=== PATIENT | female | born 1960 | race Caucasian/White ===

== ENCOUNTER 2020-04-09 13:37 | Outpatient (CLI) | payer OTHER, SELFPAY ==
--- NOTE | 2020-04-09 | ECG_ITS ---
Measurements Intervals [place] Rate: 62 P: 39 OR: 154 QRS: 35 QRSD: 93 T: 34 QT: 389 QTc: 395 Interpretive Statements SINUS RHYTHM NORMAL ECG Electronically Signed On 04-09-2020 14:32:47 CDT by Nicolas Duff D.O.
== END 2020-04-09 13:38 | disposition home or self-care (01) ==
PROVIDERS: PCP Family Medicine; Visit Provider Podiatrist Foot & Ankle Surgery
DX: R03.0 Elevated blood-pressure reading, without diagnosis of hypertension (principal)
CPT/HCPCS: 93005

== ENCOUNTER 2020-12-12 12:23 | Emergency (ER) | payer OTHER, SELFPAY ==
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
[2020-12-12 12:21] VITALS: BP 141/88; PULSE 77; RESP 16; TEMP 36.4; O2SAT 98
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
[2020-12-12] MEDS: HYDROcodone/acetaminophen (*CRX) 5-325 MG TABLET 1 TAB PO (12:56)
== END 2020-12-12 13:36 | disposition home or self-care (01) ==
PROVIDERS: Emergency Provider Emergency Medicine; PCP Family Medicine
DX: T23.161A Burn of first degree of back of right hand, initial encounter (principal); S20.211A Contusion of right front wall of thorax, initial encounter; T31.0 Burns involving less than 10% of body surface; I10 Essential (primary) hypertension; E03.9 Hypothyroidism, unspecified; V49.40XA Driver injured in collision with unspecified motor vehicles in traffic accident, initial encounter; W22.11XA Striking against or struck by driver side automobile airbag, initial encounter
CPT/HCPCS: 71046; 99283; A9270

== ENCOUNTER → 2021-02-22 15:18 | Outpatient (CLI) | payer OTHER, SELFPAY ==
--- NOTE | ~2021-02-22 | XR_ITS ---
XR clavicle RT 02/22/2021 15:39 INDICATION: Left shoulder pain PROCEDURE: 2 views left clavicle COMPARISON: No prior studies for comparison. FINDINGS: Fracture, dislocation or subluxation is not identified. The soft tissues appear within norm al limits. No foreign bodies are identified. IMPRESSION: 1: NO ACUTE BONE OR JOINT ABNORMALITY IDENTIFIED. Reviewed, dictated and finalized at location B.
== END ==
PROVIDERS: Visit Provider Nurse Practitioner Family
DX: M89.8X1 Other specified disorders of bone, shoulder (principal)
CPT/HCPCS: 73000

== ENCOUNTER 2021-04-02 10:56 | Emergency (ER) | payer OTHER, SELFPAY ==
--- NOTE | 2021-04-02 11:02 | ED.FEMALEGU ---
HPI - Female Genitourinary General Chief complaint: Urogenital-Female Stated complaint: uti Time Seen by Provider: 04/02/21 11:03 Source: patient and RN notes reviewed Mode of arrival: ambulatory Limitations: no limitations History of Present Illness HPI Narrative: 60-year-old female presents to [facility] with complaints of I think I have a UTI. Complains of suprapubic pressure, burning, urgency and frequency. Has a history of UTIs and states it feels very similar. Related Data Allergies Allergy/AdvReac Type Severity Reaction Status Date / Time loratadine Allergy Unknown Unknown Verified 04/02/21 11:16 nitrofurantoin Allergy Unknown Other Verified 04/02/21 11:16 azelastine AdvReac Unknown SLEEPY Verified 04/02/21 11:16 indomethacin AdvReac Unknown Nausea and Verified 04/02/21 11:16 Vomiting Review of Systems Review of Systems: All systems reviewed & are unremarkable except as noted in HPI and below Constitutional: Constitutional: Reports no additional constitutional complaints, Denies chills and Denies fatigue Eyes: Eyes: Reports no additional eye complaints Cardiovascular: Cardiovascular: Reports no additional cardiovascular complaints and Denies chest pain Respiratory: Respiratory: Reports no additional respiratory complaints, Denies cough, Denies dyspnea and Denies wheezing Gastrointestinal: Gastrointestinal: Reports no additional gastrointestinal complaints, Denies abdominal pain, Denies diarrhea, Denies nausea and Denies vomiting Genitourinary: Genitourinary: Reports as per HPI, Denies hematuria, Reports nocturia, Reports dysuria, Denies flank pain and Denies vaginal discharge Musculoskeletal: Musculoskeletal: Reports no additional musculoskeletal complaints and Denies back pain Integumentary/Breasts: Skin/Breast: Reports system reviewed and no additional complaints, except as docu Neurologic: Reports system reviewed and no additional complaints, except as documented Psychiatric: Psychiatric: Reports no additional psychiatric complaints [facility] Past Medical History Medical History BMI 36.0-36.9,adult BMI 37.0-37.9, adult Essential (primary) hypertension Hallux limitus of left foot Hypothyroidism, unspecified Surgical History Surgical History History of carpal tunnel release of both wrists 2010 History of endometrial ablation Family History Family History Mother Family history of cataracts Hypertension Family history of diabetes mellitus in first degree relative Sibling Hypertension Carcinoma of colon Grandparent Carcinoma of colon Father , yesterday. 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 There is no relevant family history pertinent to the patient complaint. Exam Const: General: healthy appearing, no acute distress and alert Nutritional Appearance: well nourished Orientation/consciousness: patient oriented x3 Limitations: no limitations HENMT: Head: normal to inspection Chest: Chest palpation & inspection: normal inspection of the chest Resp: Effort & Inspection: normal respiratory effort and no use of accessory muscles Auscultation: clear to auscultation bilaterally, no crackles, no rales, no rhonchi and no wheezes Cardio: Rate: regular rate Rhythm: regular rhythm GI: GI Palp: Yes Soft to palpation and No Tenderness to palpation prese
[2021-04-02 11:10] VITALS: BP 128/72; PULSE 75; RESP 16; TEMP 36.6; O2SAT 99
[2021-04-02 11:12] VITALS: BP 128/72; PULSE 75; RESP 16; TEMP 36.6; O2SAT 99
== END 2021-04-02 11:22 | disposition home or self-care (01) ==
PROVIDERS: Emergency Provider Nurse Practitioner; PCP Family Medicine
DX: N30.01 Acute cystitis with hematuria (principal); I10 Essential (primary) hypertension; E03.9 Hypothyroidism, unspecified
CPT/HCPCS: 81003; 87077; 87086; 87088; 87186; 99213; G0463

== ENCOUNTER 2021-04-05 07:48 | Outpatient (CLI) | payer OTHER, SELFPAY ==
--- NOTE | ~2021-04-05 | MM_ITS ---
EXAMINATION: MM screening ramon BI w estefany HISTORY: Screening mammogram TECHNIQUE: Craniocaudal and mediolateral oblique 3-D tomosynthesis images were obtained and synthetic 2-D images were generated. CAD analysis was submitted and interpreted. COMPARISON: 09/20/2019, 05/10/2011 bilateral digital screening mammogram examinations BREAST PARENCHYMAL COMPOSITION: There are scattered areas of fibroglandular density. FINDINGS: There is no evidence of suspicious mass, calcification, or architectural distortion to sugg est malignancy in either breast. There has been no suspicious interval change. IMPRESSION: 1. No mammographic evidence of malignancy. 2. Recommend routine screening mammography in one year. BI-RADS Category 1: Negative Reviewed, dictated and finalized at location A.
--- NOTE | ~2021-04-05 | DEXA_ITS ---
Bone Density Report Name: Amber Donaldson Age: 60 Sex: Female Ethnicity: White Date of : 1960 Indication: postmenopausal; Referring Provider: Elmer Hameed Study: Bone densitometry was performed. Exam Date: April 05, 2021 Accession number: [id number] Bone Density: Region BMD T-score Z-score Classification AP Spine (L1-L4) 1.043 0.0 1.3 Normal Femoral Neck (Left) 0.713 -1.2 0.0 Osteopenia Total Hip (Left) 1.010 0.6 1.5 Normal Total Hip Bilateral Avg 0.972 0.3 1.2 Normal Femoral Neck (Right) 0.750 -0.9 0.4 Normal Total Hip (Right) 0.933 -0.1 0.8 Normal World Health Organization criteria for BMD impression classify patients as: Normal (T-score at or above -1.0), Osteopenia (T-score between -1.0 and -2.5), or Osteoporosis (T-score at or below -2.5). 10-year Fracture Risk(1): Major Osteoporotic Fracture 6.6% Hip Fracture 0.4% Reported Risk Factors: [place] (), Neck BMD=0.713, BMI=36.1 (1) FRAX(R) Version 3.08. Fracture probability calculated for an untreated patient. Fracture probability may be lower if the patient has received treatment. Clinical Information Provided by Patient: Has used the following medications: Vitamin D, Calcium Patient maximum height was 60 Menopause Age: 52 No regular weight bearing exercise Does not regularly consume dairy products Drinks caffeinated beverages Onset of menses at age 13 Number of children 2 Impression: The patient has low bone mass, based on the Left Femoral Neck T-score. The patient has an estimated ten-year risk of hip fracture of 0.4% and an estimated ten-year risk of major fracture of 6.6%, based on the WHO FRAX algorithm. Discussion: BONE DENSITY IS LOW AT ONE OR MORE SKELETAL SITES. This patient's lowest T-score is low at one or more skeletal sites. It meets the World Health Organization's (WHO) criteria for ?low bone mass? (T-score between -1.0 and -2.5). The patient's 10-year risk of fracture as calculated by FRAX is less than the threshold where pharmacological therapy is recommended by the National Osteoporosis Foundation (NOF). However, all treatment decisions require clinical judgment and consideration of individual patient factors, including patient preferences, comorbidities, previous drug use, risk factors not captured in the FRAX model (e.g., frailty, falls, vitamin D deficiency, increased bone turnover, interval significant decline in bone density) and possible under or overestimation of fracture risk by FRAX. The patient should follow a healthful lifestyle (good nutrition with adequate calcium and vitamin D, and appropriate weight-bearing exercise). Follow-Up: Consider repeating this study in 2 to 3 years to reassess this patient's status, or sooner if there is some new clinical indication. Reported by: CHRIS on 04/05/20
== END 2021-04-05 07:49 | disposition home or self-care (01) ==
PROVIDERS: PCP Family Medicine; Visit Provider Nurse Practitioner Family
DX: E03.8 Other specified hypothyroidism (principal); E88.81 Metabolic syndrome and other insulin resistance; R73.03 Prediabetes; R79.89 Other specified abnormal findings of blood chemistry; Z68.36 Body mass index [BMI] 36.0-36.9, adult; Z12.31 Encounter for screening mammogram for malignant neoplasm of breast; Z78.0 Asymptomatic menopausal state; M85.852 Other specified disorders of bone density and structure, left thigh
CPT/HCPCS: 77063; 77067; 77080

== ENCOUNTER 2022-09-01 09:33 | Emergency (ER) | payer OTHER, SELFPAY ==
[2022-09-01 09:44] VITALS: BP 130/74; PULSE 70; RESP 16; TEMP 37; O2SAT 98
--- NOTE | 2022-09-01 10:31 | ED.URI ---
HPI - URI/Sore Throat General Chief Complaint: Upper Respiratory Infection Stated Complaint: headache, runny nose, coughing Time Seen by Provider: 09/01/22 10:20 Source: patient Mode of arrival: ambulatory Limitations: no limitations History of Present Illness HPI Narrative: patient presents today complaining of a 7+ day history of headache, rhinorrhea, nasal congestion, cough, fever up to 99.7, postnasal drainage. States this morning she has been experiencing green nasal drainage. She has been taking DayQuil and NyQuil without relief. Denies any history of asthma or COPD. No shortness of breath. She is a nonsmoker. She has been vaccinated for COVID-19. She has had a negative home COVID-19 test. Related Data Home Medications Medication Instructions Recorded Confirmed [place] 3 09/01/22 cholecalciferol (vitamin D3) 09/01/22 Allergies Allergy/AdvReac Type Severity Reaction Status Date / Time loratadine Allergy Unknown Unknown Verified 09/01/22 10:12 nitrofurantoin Allergy Unknown Other Verified 09/01/22 10:12 azelastine AdvReac Unknown SLEEPY Verified 09/01/22 10:12 indomethacin AdvReac Unknown Nausea and Verified 09/01/22 10:12 Vomiting Review of Systems Review of Systems: CONSTITUTIONAL: Denies body aches, chills, or sweats.+ fever EYES: Denies visual changes, redness, or discharge. ENT: Denies sore throat, or otalgia.+ Congestion, rhinorrhea, postnasal drip CARDIOVASCULAR: Denies chest pain, palpitations, or edema. RESPIRATORY: Denies dyspnea.+ cough GASTROINTESTINAL: Denies abdominal pain, nausea, vomiting, or diarrhea. GENITOURINARY: Denies dysuria or hematuria. SKIN: Denies rash, itching, or wounds. MUSCULOSKELETAL: Denies back pain, joint pain, or myalgia. NEUROLOGIC: Denies numbness, tingling, or weakness.+ headache PSYCH: Denies depression or anxiety. [facility] Past Medical History Medical History BMI 36.0-36.9,adult BMI 37.0-37.9, adult Essential (primary) hypertension Hallux limitus of left foot Hypothyroidism, unspecified Surgical History Surgical History History of carpal tunnel release of both wrists 2011 History of endometrial ablation Family History Family History Mother Family history of cataracts Hypertension Family history of diabetes mellitus in first degree relative Sibling Hypertension Carcinoma of colon Grandparent Carcinoma of colon Father , yesterday. 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 Please see nursing chart for further information. There is no relevant family history pertinent to the presenting complaint Exam Narrative: GENERAL: mildly ill-appearing, well-nourished, and in no acute distress. HEAD: Normocephalic, atraumatic. EYES: EOMI. No redness or drainage. Conjunctivae normal. ENT: Mucous membranes pink and moist. Nares congested. bilateral swollen and erythematous nasal turbinates with purulent discharge. Bilateral maxillary sinus tenderness. No frontal sinus tenderness. TMs normal bilaterally. Throat normal. Uvula midline. NECK: Normal AROM. Supple. No lymphadenopathy. CHEST: No respiratory distress. Clear to auscultation. HEART: Regular rate and rhythm. No murmur appreciated. Normal peripheral pulses.
== END 2022-09-01 10:42 | disposition home or self-care (01) ==
PROVIDERS: Emergency Provider Nurse Practitioner; PCP Family Medicine
DX: J01.90 Acute sinusitis, unspecified (principal); Z87.891 Personal history of nicotine dependence; I10 Essential (primary) hypertension; E03.9 Hypothyroidism, unspecified
CPT/HCPCS: 99213; G0463

== ENCOUNTER 2022-09-09 08:38 | Emergency (ER) | payer OTHER, SELFPAY ==
[2022-09-09 09:07] VITALS: BP 152/83; PULSE 80; RESP 18; TEMP 36.1; O2SAT 100
--- NOTE | 2022-09-09 09:12 | ED.GENADULT ---
HPI - General Adult General Chief complaint: Headache Stated complaint: Headache Time Seen by Provider: 09/09/22 09:12 Source: patient Mode of arrival: ambulatory Limitations: no limitations History of Present Illness HPI narrative: 61-year-old female presents with complaint of mouth sores that causes shooting, sharp pains to head when she touches them with her tongue . Reports that she has had this issue since she was a teenager. Has not seen her physician for this problem in the past. States she has had the mouth sores for the past 2-3 days and wanted it documented So she came here. Reports that mouth sores are not canker sores or viral related states they are from eating rough food such as chips, Cheerios etc. patient also states that she was seen here recently for bacterial sinus infection And is taking Augmentin. states that sinuses are still bothered her and today she woke up with postnasal drainage. Is not taking any daily allergies medications or [id number] medications to treat congestion. Denies cough. Afebrile. All systems reviewed and negative except as noted above. Related Data Home Medications Medication Instructions Recorded Confirmed [place] 3 09/01/22 cholecalciferol (vitamin D3) 09/01/22 Allergies Allergy/AdvReac Type Severity Reaction Status Date / Time loratadine Allergy Unknown Unknown Verified 09/01/22 10:12 nitrofurantoin Allergy Unknown Other Verified 09/09/22 09:06 azelastine AdvReac Unknown SLEEPY Verified 09/01/22 10:12 indomethacin AdvReac Unknown Nausea and Verified 09/09/22 09:06 Vomiting Review of Systems Review of Systems: CONSTITUTIONAL: Denies fever, chills, or sweats. EYES: Denies visual changes, redness, or discharge. ENT: reports rhinorrhea, congestion, postnasal drainage. Deniessore throat, or otalgia. CARDIOVASCULAR: Denies chest pain, palpitations, or edema. RESPIRATORY: Denies cough or dyspnea. GASTROINTESTINAL: Denies abdominal pain, nausea, vomiting, or diarrhea. GENITOURINARY: Denies dysuria or hematuria. SKIN: Denies rash or itching. MUSCULOSKELETAL: Denies back pain, joint pain, or myalgia. NEUROLOGIC: Reports intermittent headache when tongue touches oral mouth sores . Deniesnumbness, or weakness. PSYCHIATRIC: Denies anxiety or depression. All other systems reviewed are negative, except as documented in HPI. [facility] Past Medical History Medical History BMI 36.0-36.9,adult BMI 37.0-37.9, adult Essential (primary) hypertension Hallux limitus of left foot Hypothyroidism, unspecified Surgical History Surgical History History of carpal tunnel release of both wrists 2011 History of endometrial ablation Family History Family History Mother Family history of cataracts Hypertension Family history of diabetes mellitus in first degree relative Sibling Hypertension Carcinoma of colon Grandparent Carcinoma of colon Father , yesterday. 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 There is no relevant family history pertinent to the presenting complaint. Exam Narrative: GENERAL: This is a well-nourished, well-developed patient, in no apparent distress. HEAD: normocephalic, atraumatic. EYES: PERRL. Sclera clear/white. Vision is grossly intact. EARS: Externa
== END 2022-09-09 09:33 | disposition home or self-care (01) ==
PROVIDERS: Emergency Provider Nurse Practitioner Family; PCP Family Medicine
DX: J01.90 Acute sinusitis, unspecified (principal); R51.9 Headache, unspecified; S00.512A Abrasion of oral cavity, initial encounter; X58.XXXA Exposure to other specified factors, initial encounter; I10 Essential (primary) hypertension; E03.9 Hypothyroidism, unspecified
CPT/HCPCS: 99213; G0463

== ENCOUNTER 2023-07-04 02:39 | Day surgery (SDC) | payer OTHER, SELFPAY ==
[2023-06-25 11:19] VITALS: BMI 37.3
[2023-07-04 08:41] VITALS: BP 133/84; PULSE 71; RESP 18; TEMP 36.2; O2SAT 96
[2023-07-04] MEDS: LACTATED RINGERS 1,000 ML 150 ML IV CONT (08:43)
--- NOTE | 2023-07-04 08:49 | WPDANESEPPF ---
Anes - Initial Pre Proc Eval Procedure: Operation Date: 07/04/23 10:00 Proposed Procedures p Screening Colonoscopy - Zhang Salazar MD Date/Time: 07/04/23 08:49 Surgeon: Zhang Salazar MD Pre Op Diagnosis: neoplasm screening Patient Data Age: 62 Gender: F Height: 1.5 m Weight: 84.3 kg Last Vital Signs Temp 97.2 F L 07/04/23 08:41 Pulse 71 07/04/23 08:41 Resp 18 07/04/23 08:41 BP 133/84 07/04/23 08:41 Pulse Ox 96 07/04/23 08:41 O2 Del Method Room Air 07/04/23 08:41 Allergies Allergy/AdvReac Type Severity Reaction Status Date / Time loratadine AdvReac Mild Anxiety Verified 07/04/23 08:40 nitrofurantoin AdvReac Mild Nausea Verified 07/04/23 08:40 azelastine AdvReac Unknown SLEEPY Verified 07/04/23 08:40 indomethacin AdvReac Unknown Nausea and Verified 07/04/23 08:40 Vomiting Home Medications Medication Instructions Recorded Confirmed Type citalopram 40 mg tablet 40 mg PO DAILY #90 tabs 04/08/23 06/25/23 Rx levothyroxine 75 mcg tablet 75 mcg PO DAILY #90 tabs 04/08/23 06/25/23 Rx lisinopril 40 mg tablet 40 mg PO DAILY #90 tabs 04/08/23 06/25/23 Rx valacyclovir 500 mg tablet 500 mg PO DAILY #90 tabs 04/23/23 06/25/23 Rx cholecalciferol (vitamin D3) 25 25 mcg PO DAILY 05/29/23 06/25/23 History mcg (1,000 unit) capsule estradiol 0.01% (0.1 mg/gram) 1 g vaginal 2XW #42.5 grams 05/29/23 06/25/23 Rx vaginal cream omega 4-yja-olp-fish oil 60 mg-90 1 cap PO DAILY 05/29/23 06/25/23 History mg-500 mg capsule Patient hx anesthesia problems: none Family hx anesthesia problems: none Results Review: All pre-operative results and documents have been reviewed as part of the pre-operative evaluation. [facility] Past Medical History Medical History BMI 36.0-36.9,adult BMI 37.0-37.9, adult Essential (primary) hypertension Hallux limitus of left foot Hypothyroidism, unspecified Surgical History Surgical History History of carpal tunnel release of both wrists 2011 History of endometrial ablation Family History Family History Mother Family history of cataracts Hypertension Family history of diabetes mellitus in first degree relative Sibling Hypertension Carcinoma of colon Grandparent Carcinoma of colon Father , yesterday. Dementia Other Diabetes mellitus Family history of malignant melanoma Social History Social History (Updated 05/29/23 @ 11:24 by SAM Cunningham) Smoking status: Never smoker Second hand tobacco smoke exposure: No Alcohol intake: current Drinks per week: 1 Alcohol use details: occasionally Substance use: never Substance use type: does not use Lack of Transportation: No Lack of Food: Never True Current Housing: I Have Housing Concerned About Future Housing: No Difficulty Paying Gas/Electric Bills: No Difficulty Paying for Meds: No Currently Unemployed: No Education: Master's Degree or Higher Difficulty w/ Childcare or Family Care: No Living arrangements: with family 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 Informed Consent: The patient's anesthetic plan and its attendant risks and benefits were discussed
--- NOTE | 2023-07-04 09:08 | PM.HPGS ---
History of Present Illness History of Present Illness Consent: Risks, benefits, and alternatives have been discussed and questions answered. Patient agrees to proceed with procedure. Chief complaint: neoplasm screening Narrative: Amber Donaldson is a 62 year old female with last colonoscopy over 5 years, brother had colon cancer Review of Systems Constitutional: Constitutional: Denies headache(s) and Denies weakness Eyes: Eyes: Denies blurry vision ENT: Reports Normal hearing present, Denies headache(s) and Denies neck pain Cardiovascular: Cardiovascular: Denies chest pain and Denies dyspnea Respiratory: Respiratory: Denies dyspnea Gastrointestinal: Gastrointestinal: Reports no additional gastrointestinal complaints Genitourinary: Genitourinary: Denies dysuria Musculoskeletal: Musculoskeletal: Denies neck pain Integumentary/Breasts: Skin/Breast: Denies dry skin Neurologic: Reports Normal hearing present, Denies headache(s) and Denies weakness Psychiatric: Psychiatric: Denies anxiety Endocrine: Endocrine: Denies change in body appearance Hematologic/Lymphatic: Hematologic/Lymphatic: Denies easy bleeding Allergic/Immunologic: Allergic/Immunologic: Denies urticaria PMFSH Past Medical History Medical History (Updated 07/04/23 @ 09:08 by Zhang Salazar MD) BMI 36.0-36.9,adult BMI 37.0-37.9, adult Essential (primary) hypertension Family history of colon cancer Hallux limitus of left foot Hypothyroidism, unspecified Surgical History Surgical History History of carpal tunnel release of both wrists 2011 History of endometrial ablation Family History Family History Mother Family history of cataracts Hypertension Family history of diabetes mellitus in first degree relative Sibling Hypertension Carcinoma of colon Grandparent Carcinoma of colon Father , yesterday. Dementia Other Diabetes mellitus Family history of malignant melanoma Social History Social History (Updated 05/29/23 @ 11:24 by SAM Cunningham) Smoking status: Never smoker Second hand tobacco smoke exposure: No Alcohol intake: current Drinks per week: 1 Alcohol use details: occasionally Substance use: never Substance use type: does not use Lack of Transportation: No Lack of Food: Never True Current Housing: I Have Housing Concerned About Future Housing: No Difficulty Paying Gas/Electric Bills: No Difficulty Paying for Meds: No Currently Unemployed: No Education: Master's Degree or Higher Difficulty w/ Childcare or Family Care: No Living arrangements: with family 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 Spiritual care concerns: No Meds Home Medications and Allergies Home Medications Medication Instructions Recorded Confirmed Type citalopram 40 mg tablet 40 mg PO DAILY #90 tabs 04/08/23 06/25/23 Rx levothyroxine 75 mcg tablet 75 mcg PO DAILY #90 tabs 04/08/23 06/25/23 Rx lisinopril 40 mg tablet 40 mg PO DAILY #90 tabs 04/08/23 06/25/23 Rx valacyclovir 500 mg tablet 500 mg PO DAILY #90 tabs 04/23/23 06/25/23 Rx cholecalciferol (vitamin D3) 25 25 mcg PO DAILY 05/29/23 06/25/23 History mcg (1,000 unit) capsule estradiol 0.01% (0.1 mg/gram) 1 g vaginal 2XW #42.5 grams 05/29/23 06/25/23 Rx vaginal cream omega 7-iou-vje-fish oil 60 mg-90 1 cap PO DAILY 05/29/23 06/25/23 History mg-500 mg capsule Allergies Allergy/AdvReac Type Severity Reaction Status Date / Time loratadine AdvReac Mild Anxiety Verified 07/04/23 08:40 nitrofurantoin AdvReac Mild Nausea Verified 07/04/23 08:40 azelastine AdvReac Unknown SLEEPY Verified 07/04/23 08:40 indomethacin AdvReac Unknown Nausea and Verified 07/04/23 08:40 Vomiting Vital Signs Vital Signs - 24 hr 07/04/23 08:41
[2023-07-04 09:30] VITALS: BP 90/54; PULSE 61; RESP 18; O2SAT 92
[2023-07-04 09:40] VITALS: BP 92/56; PULSE 62; RESP 20; O2SAT 94
[2023-07-04 09:50] VITALS: BP 117/77; PULSE 69; RESP 18; O2SAT 95
== END 2023-07-04 10:01 | disposition home or self-care (01) ==
PROVIDERS: PCP Family Medicine; Visit Provider Internal Medicine Gastroenterology
PROC: 0DJD8ZZ Inspection of Lower Intestinal Tract, Via Natural or Artificial Opening Endoscopic (ICD-10-PCS; CPT 45378; principal; 2023-07-04 10:00)
DX: Z12.11 Encounter for screening for malignant neoplasm of colon (principal); D12.3 Benign neoplasm of transverse colon; K57.30 Diverticulosis of large intestine without perforation or abscess without bleeding; K64.8 Other hemorrhoids; Z80.0 Family history of malignant neoplasm of digestive organs; I10 Essential (primary) hypertension; E03.9 Hypothyroidism, unspecified; E66.9 Obesity, unspecified; Z68.37 Body mass index [BMI] 37.0-37.9, adult
CPT/HCPCS: 45380; 88305; J2704; J7120

== ENCOUNTER 2023-08-06 13:31 | Outpatient (CLI) | payer OTHER, SELFPAY ==
--- NOTE | ~2023-08-06 | MM_ITS ---
EXAMINATION: MM screening ramon BI w estefany HISTORY: Screening mammogram TECHNIQUE: Craniocaudal and mediolateral oblique 3-D tomosynthesis images were obtained and synthetic 2-D images were generated. CAD analysis was submitted and interpreted. COMPARISON: 04/05/2021, 09/20/2019 bilateral screening mammogram examinations BREAST PARENCHYMAL COMPOSITION: There are scattered areas of fibroglandular density. FINDINGS: Occasional bilateral benign calcifications. There are multiple new thin-walled benign oil cysts scattered in the upper inner and upper outer quad rants of the right breast. There is no evidence of suspicious mass, calcification, or architectural d istortion to suggest malignancy in either breast. There has been no suspicious interval change. IMPRESSION: 1. Benign findings 2. Recommend routine screening mammography in one year. BI-RADS Category 2: Benign finding(s). Reviewed, dictated and finalized at location A.
== END 2023-08-06 13:32 | disposition home or self-care (01) ==
LOC: ANHIMG 13:33
PROVIDERS: PCP Family Medicine; Visit Provider Nurse Practitioner Family
DX: Z12.31 Encounter for screening mammogram for malignant neoplasm of breast (principal)
CPT/HCPCS: 77063; 77067

== ENCOUNTER 2023-10-24 09:47 | Outpatient (CLI) | payer OTHER, SELFPAY ==
--- NOTE | 2023-11-16 17:11 | WPDSLEEPSTUD ---
Sleep Study Date of Study: 10/24/23 Ordering Provider: Mariza Kothari DO Interpreting Physician: Dariela Wilkes MD Sleep Study Type: Polysomnogram Height: 1.5 m Weight: 82.554 kg Body Mass Index: 36.7 Neck Circumference (inches): 16.5 [place]: 17 Reason for Sleep Study BRANDI; this is a basic study on CPAP 10 with titration if needed with MSLT to follow Sleep History Amber Donaldson is a 62-year-old woman with obstructive sleep apnea diagnosed about 15 years ago, has been on CPAP 10 cm since her test in 2017. She now has increasing sleepiness and takes naps. She requires increased caffeine. She never awakens from sleep short of breath. She never wakes at night with heartburn, belching or coughing.??She frequently snores, frequently snores loudly enough that others complain. She occasionally has trouble sleeping when she has a cold. She never wakes up gasping for breath during the night. She never has breathing problems at night. She occasionally sweats excessively at night. She never notices her heart pounding or beating irregularly during the night. She frequently falls asleep during the day. She rarely falls asleep involuntarily, rarely falls asleep while driving. She never experiences loss of muscle tone with strong emotion. she rarely has daytime difficulties at work due to excessive sleepiness. She never feels paralyzed on waking or falling asleep. She never experiences vivid dreams upon waking or falling asleep. She never feels afraid of going to sleep. She never has nightmares. She rarely recalls her dreams. She occasionally has thoughts racing through her mind. She rarely feels sad or depressed. She occasionally feels anxiety. She rarely notices parts of her body jerk. She rarely kicks during the night. She never feels crawling or aching feelings in her legs. She rarely feels leg pain at night. She never has morning jaw pain, and never grinds her teeth at night. She rarely feels bothered by pain during the day, is never awakened by pain during the night. She never wakes up feeling stiff in the morning, never wakes feeling sore or achy in the morning. She rarely awakens with pain in her neck, spine, or joints. Normal bedtime is 11:00 p.m., falling asleep within 15-20 minutes, typically waking up 2-3 times during the night long enough to go to the bathroom if needed and then she returns to sleep. Returning to sleep is not difficult. Her normal wake time is 7:00 a.m.. She keeps the same schedule on weekends. She estimates getting between 6 and 8 hours of sleep at night. Sometimes she takes a nap in the afternoon or evening. A short nap lasting 10-15 minutes is not refreshing. She feels better in the evening compared to other times of day. Habits:??Tobacco: Never smoker Caffeine: 1 serving of tea and 2 cans of Pepsi daily. Alcohol: 1 serving of wine weekly Recreational substances: none PMFSH Past Medical History Medical History BMI 36.0-36.9,adult BMI 37.0-37.9, adult Essential (primary) hypertension Family history of colon cancer Hallux limitus of left foot Hypothyroidism, unspecified BRANDI (obstructive sleep apnea) Surgical History Surgical History History of carpal tunnel release of both wrists 2011 History of endometrial ablation Family History Family History Mother Family history of cataracts Hypertension Family history of diabetes mellitus in first degree relative Sibling Hypertension Carcinoma of colon Grandparent Carcinoma of colon Father , yesterday. Dementia Other Diabetes mellitus Family history of malignant melanoma Social History Social History Smoking status: Never smoker Second hand tobacco smoke exposure: No Alc
[2023-11-22 10:20] VITALS: BMI 36.7
--- NOTE | 2023-11-23 14:40 | WPDSLEEPSTUD ---
Sleep Study Date of Study: 10/24/23 Ordering Provider: Mariza Kothari DO Interpreting Physician: Dariela Wilkes MD Sleep Study Type: Multiple Sleep Latency Test Height: 1.5 m Weight: 82.554 kg Body Mass Index: 36.7 Neck Circumference (inches): 16.5 [place]: 17 Reason for Sleep Study Hypersomnia; she completed PSG with CPAP 12 cm water pressure and 2 cm EPR with more than 6 hours of sleep before this test Sleep History See sleep history from PSG. The patient is a 62 year-old Female, 4' 11 , 182.0 lbs. The BMI is 37.2. A Multiple Sleep Latency Test was performed following a full night polysomnogram for excessive daytime sleepiness. [facility] Past Medical History Medical History BMI 36.0-36.9,adult BMI 37.0-37.9, adult Essential (primary) hypertension Family history of colon cancer Hallux limitus of left foot Hypothyroidism, unspecified BRANDI (obstructive sleep apnea) Surgical History Surgical History History of carpal tunnel release of both wrists 2011 History of endometrial ablation Family History Family History Mother Family history of cataracts Hypertension Family history of diabetes mellitus in first degree relative Sibling Hypertension Carcinoma of colon Grandparent Carcinoma of colon Father , yesterday. Dementia Other Diabetes mellitus Family history of malignant melanoma Social History Social History Smoking status: Never smoker Second hand tobacco smoke exposure: No Alcohol intake: current Drinks per week: 1 Alcohol use details: occasionally Substance use: never Substance use type: does not use Lack of Transportation: No Lack of Food: Never True Current Housing: I Have Housing Concerned About Future Housing: No Difficulty Paying Gas/Electric Bills: No Difficulty Paying for Meds: No Currently Unemployed: No Education: Master's Degree or Higher Difficulty w/ Childcare or Family Care: No Living arrangements: with family 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 Spiritual care concerns: No Medications Home Medications Medication Instructions Recorded Confirmed Type citalopram 40 mg tablet 40 mg PO DAILY #90 tabs 04/08/23 09/05/23 Rx levothyroxine 75 mcg tablet 75 mcg PO DAILY #90 tabs 04/08/23 09/05/23 Rx lisinopril 40 mg tablet 40 mg PO DAILY #90 tabs 04/08/23 09/05/23 Rx cholecalciferol (vitamin D3) 25 25 mcg PO DAILY 05/29/23 09/05/23 History mcg (1,000 unit) capsule omega 6-bsv-jox-fish oil 60 mg-90 1 cap PO DAILY 05/29/23 09/05/23 History mg-500 mg capsule estradiol 0.01% (0.1 mg/gram) 1 appful vaginal DAILY 08/01/23 09/05/23 History vaginal cream Sleep Procedure The recording montage for the MSLT includes frontal (F3-M2 or F4-M1), central (C3-M2 or C4-M1), occipital (O1-M2 or O2-M1) derivations, left and right eye EOGs, mental/submental EMG, and EKG. Nap Summary: Nap trials started at 07:50:27 AM following an overnight polysomnogram that ended at the Time of Lights on at 6:14 AM. The overnight PSG had an overall Apnea-Hypopnea index 0.6 using CPAP 12 cm with 2 cm EPR. The patient did not have sleep onset REM at the start of the nocturnal polysomnogram. The patient used CPAP 12 cm with 2 cm EPR during this MSLT. Nap 1 commenced at 7:50 a.m. Sleep latency was 5.4 minutes. REM sleep did not occur. Total sleep time was 15 minutes. Nap was terminated at 8:10 a.m.. The patient reported that sleep occurred but no dreaming. Nap 2 commenced at 9:49 a.m.. Sleep latency was 5.5 minutes. REM sleep did not occur. Total sleep time was 20 minutes. Nap was terminated at 10:15 a.m. The patient reported that sleep occurred, no dreami
[2023-11-23 15:55] VITALS: BMI 36.7
== END 2023-10-25 16:30 | disposition home or self-care (01) ==
LOC: ANHCSM 09:49
PROVIDERS: PCP Family Medicine; Visit Provider Family Medicine
DX: G47.10 Hypersomnia, unspecified (principal); G47.33 Obstructive sleep apnea (adult) (pediatric)
CPT/HCPCS: 95805; 95810

== ENCOUNTER 2024-04-03 05:33 | Emergency (ER) | payer OTHER, SELFPAY ==
--- NOTE | ~2024-04-03 | CT_ITS ---
CT of the Abdomen and Pelvis: Indication: Abdominal pain Technique: 2.5 mm axial scans were obtained through the abdomen and pelvis following intravenous adm inistration of 100 cc of Omnipaque 350. Dose reduction technique was used on this scan by utilizing a utomated exposure control and iterative reconstruction technique. The dose-length product (DLP) was 8 55.48 mGy-cm. Findings: Scans through the lung bases are unremarkable. Probable diffuse hepatic steatosis. The spleen, pancreas, gallbladder, adrenals and kidneys are withi n normal limits. No evidence of aortic aneurysm. No lymphadenopathy. Possible minimal wall thickening inflammatory change at the sigmoid colon, suggestive of very mild ac fadi diverticulitis. No abscess or free air evident. Images through the pelvis were performed. Urinary bladder unremarkable. No pelvic mass seen. No ascit es. Impression: Probable mild focal acute diverticulitis of the sigmoid colon. Diffuse hepatic steatosis. Reviewed, dictated and finalized at [facility]. Impression: Probable mild focal acute diverticulitis of the sigmoid colon. Diffuse hepatic steatosis.
[2024-04-03 05:39] VITALS: BP 154/80; PULSE 81; RESP 17; TEMP 36.8; O2SAT 97
[2024-04-03 05:57] LABS: Basophils Percent Auto 0.4 % (0.2-1.2); Eosinophils Absolute Auto 0.2 K/mm3 (0-0.3); Eosinophils Percent Auto 1.6 % (0-4.4); Hematocrit 42.3 % (37.0-47.0); Hemoglobin 13.7 g/dL (12.0-15.0); Immature Granulocyte Absolute 0.03 K/mm3 (0.00-0.031); Immature Granulocyte Percent A 0.3 % (0-0.5); Lymphocytes Absolute Auto 2.07 K/mm3 (0.9-3.2); Lymphocytes Percent Auto 18.6 % (18.3-44.2); Mean Corpuscular HGB Conc 32.4 g/dl (32-36); Mean Corpuscular Hemoglobin 30.6 pg (26-34); Mean Corpuscular Volume 94.4 fl (80-100); Mean Platelet Volume 9.7 fl (7.4-10.4); Monocytes Absolute Auto 0.7 K/mm3 (0.1-0.6); Monocytes Percent Auto 6.2 % (2.6-8.5); Neutrophils Absolute Auto 8.1 K/mm3 (1.3-6.7); Neutrophils Percent Auto 72.9 % (45.5-73.1); Platelet Count Result 336 k/mm3 (150-375); Red Blood Count 4.48 M/mm3 (4.2-5.4); Red Cell Distribution Width 13.3 % (11.5-14.5); White Blood Count 11.1 K/mm3 (4.5-10.0)
[2024-04-03 05:59] LABS: Appearance Urine Clear (Clear); Bilirubin Urine Negative (Negative); Blood Urine Negative (Negative); Color Urine Yellow (Yellow); Glucose Urine UA Negative (Negative); Ketones Urine Negative (Negative); Leukocyte Esterase Ur Negative LEU/UL (Negative); Nitrate Urine Negative (Negative); Protein Urine Negative (Negative); Specific Grav Ur 1.005 (1.001-1.035); Urobilinogen Urine 0.2 mg/dL (<2.0); pH Urine 6.5 (5.0-9.0)
[2024-04-03 06:07] VITALS: BP 134/77; PULSE 77; RESP 20; O2SAT 95
[2024-04-03 06:08] LABS: Add Urine Microscopic? NO
[2024-04-03 06:22] LABS: Alanine Aminotransferase 21 U/L (6-35); Albumin Level 4.8 g/dL (3.5-5.1); Alkaline Phosphatase 77 U/L (38-126); Anion Gap 8 mmol/L (4-12); Aspartate Amino Transferase 23 U/L (14-36); Bilirubin,Total 0.4 mg/dL (0.2-1.3); Blood Urea Nitrogen 19 mg/dL (7-17); Calcium 9.5 mg/dL (8.4-10.2); Carbon Dioxide 23 mmol/L (22-30); Chloride 106 mmol/L (98-107); Estimated Glomerular Filt Rate > 60; Glucose 134 mg/dL (65-110); Lipase 132 U/L (23-300); Potassium 4.2 mmol/L (3.4-5.0); Sodium 137 mmol/L (137-145)
--- NOTE | 2024-04-03 06:53 | ED.ABDPAIN ---
HPI - Abdominal Pain General Chief Complaint: Abdominal Pain Stated Complaint: abd pain Time Seen by Provider: 04/03/24 06:25 History of Present Illness HPI narrative: Patient is a 63-year-old female who presents to the emergency department this morning complaining of lower abdominal pain. Patient states that pain started yesterday and initially she thought that it was stress due to her needing to have a bowel movement, however, pain persisted despite that. Patient describes it as fullness in her bilateral lower abdomen and states that it almost feels like she is having a bladder infection but she is not having any dysuria or urgency. Patient denies any nausea or vomiting, denies any diarrhea, denies any sick contacts at home. Patient also denies any chest pain shortness of breath or any fevers or chills at home. No additional symptoms or concerns at this time. Related Data Home Medications Medication Instructions Recorded Confirmed cholecalciferol (vitamin D3) 25 25 mcg PO DAILY 05/29/23 03/05/24 mcg (1,000 unit) capsule omega 7-jva-hwl-fish oil 60 mg-90 1 cap PO DAILY 05/29/23 03/05/24 mg-500 mg capsule estradiol 0.01% (0.1 mg/gram) 1 appful vaginal DAILY 08/01/23 03/05/24 vaginal cream ascorbate calcium (vitamin C) 500 500 mg PO DAILY 03/05/24 03/05/24 mg tablet clobetasol 0.05 % topical ointment 1 applic topical DAILY 03/05/24 03/05/24 ferrous sulfate 325 mg (65 mg 325 mg PO DAILY 03/05/24 03/05/24 iron) tablet triamcinolone acetonide 0.1 % 1 applic topical BID 03/05/24 03/05/24 topical cream Allergies Allergy/AdvReac Type Severity Reaction Status Date / Time loratadine AdvReac Mild Anxiety Verified 03/05/24 12:46 nitrofurantoin AdvReac Mild Nausea Verified 03/05/24 12:46 azelastine AdvReac Unknown SLEEPY Verified 03/05/24 12:46 indomethacin AdvReac Unknown Nausea and Verified 03/05/24 12:46 Vomiting Review of Systems Review of Systems: All systems are reviewed and are negative unless stated otherwise in the HPI. [facility] Past Medical History Medical History BMI 36.0-36.9,adult BMI 37.0-37.9, adult Essential (primary) hypertension Family history of colon cancer Hallux limitus of left foot Hypothyroidism, unspecified BRANDI (obstructive sleep apnea) Surgical History Surgical History History of carpal tunnel release of both wrists 2011 History of endometrial ablation Family History Family History Mother Family history of cataracts Hypertension Family history of diabetes mellitus in first degree relative Sibling Hypertension Carcinoma of colon Grandparent Carcinoma of colon Father , yesterday. Dementia Other Diabetes mellitus Family history of malignant melanoma Social History Social History Smoking status: Never smoker Second hand tobacco smoke exposure: No Alcohol intake: current Drinks per week: 1 Alcohol use details: occasionally Substance use: never Substance use type: does not use Do You Feel Safe in your Home?: Yes Lack of Transportation: No Lack of Food: Never True Current Housing: I Have Housing Concerned About Future Housing: No Difficulty Paying Gas/Electric Bills: No Difficulty Paying for Meds: No Currently Unemployed: No Education: Master's Degree or Higher Difficulty w/ Childcare or Family Care: No Living arrangements: with family 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 HEENT: PERRL, no rhinorrhea, no post nasal drip, oropharynx clear. Cardiovascular: Regular rate and rhythm, no murmurs, rubs or gallops, no pe
[2024-04-03 07:08] VITALS: BP 135/76; PULSE 71; RESP 17; O2SAT 96
== END 2024-04-03 07:33 | disposition home or self-care (01) ==
PROVIDERS: Emergency Provider Emergency Medicine; PCP Family Medicine
DX: K57.32 Diverticulitis of large intestine without perforation or abscess without bleeding (principal); I10 Essential (primary) hypertension; E03.9 Hypothyroidism, unspecified; G47.33 Obstructive sleep apnea (adult) (pediatric); K76.0 Fatty (change of) liver, not elsewhere classified; Z79.899 Other long term (current) drug therapy
CPT/HCPCS: 36415; 74177; 80053; 81003; 83690; 85025; 99284; Q9967

== ENCOUNTER 2024-09-24 16:19 | Outpatient (CLI) | payer OTHER, SELFPAY ==
[2024-09-24 16:40] LABS: Hematocrit 35.8 % (37.0-47.0); Hemoglobin 11.7 g/dL (12.0-15.0); Mean Corpuscular HGB Conc 32.7 g/dl (32-36); Mean Corpuscular Hemoglobin 29.9 pg (26-34); Mean Corpuscular Volume 91.6 fl (80-100); Mean Platelet Volume 9.6 fl (7.4-10.4); Platelet Count Result 177 k/mm3 (150-375); Red Blood Count 3.91 M/mm3 (4.2-5.4); Red Cell Distribution Width 13.5 % (11.5-14.5); White Blood Count 3.9 K/mm3 (4.5-10.0)
[2024-09-24 16:49] LABS: Alanine Aminotransferase 55 U/L (6-35); Albumin Level 3.7 g/dL (3.5-5.1); Alkaline Phosphatase 76 U/L (38-126); Anion Gap 5 mmol/L (4-12); Aspartate Amino Transferase 70 U/L (14-36); Bilirubin,Total 0.3 mg/dL (0.2-1.3); Blood Urea Nitrogen 16 mg/dL (7-17); Carbon Dioxide 26 mmol/L (22-30); Chloride 106 mmol/L (98-107); Estimated Glomerular Filt Rate > 60; Glucose 110 mg/dL (65-110); Lipase 923 U/L (23-300); Potassium 3.3 mmol/L (3.4-5.0); Sodium 137 mmol/L (137-145)
[2024-09-24 16:57] LABS: Add Urine Microscopic? YES; Appearance Urine Clear (Clear); Bacteria Urine None Seen /hpf; Bilirubin Urine Negative (Negative); Blood Urine Negative (Negative); Color Urine Yellow (Yellow); Glucose Urine UA Negative (Negative); Ketones Urine Negative (Negative); Leukocyte Esterase Ur Negative LEU/UL (Negative); Nitrate Urine Negative (Negative); Non Pathogenic Casts 0-2; Protein Urine Trace mg/dL (Negative); RBC Urine 0-2 /hpf (0-2); Specific Grav Ur 1.018 (1.001-1.035); Squamous Epithelial Cell Urine Occasional /hpf (Few); WBC Urine 0-5 /hpf (0-3); pH Urine 6.5 (5.0-9.0)
== END 2024-09-24 16:20 | disposition home or self-care (01) ==
LOC: ANHLAB 16:20
PROVIDERS: PCP Family Medicine; Visit Provider Nurse Practitioner Family
DX: M54.9 Dorsalgia, unspecified (principal); R50.9 Fever, unspecified
CPT/HCPCS: 36415; 80053; 81001; 83690; 85027

== ENCOUNTER 2024-09-24 23:13 | Emergency (ER) | payer OTHER, SELFPAY ==
--- NOTE | ~2024-09-24 | CT_ITS ---
EXAMINATION: CT abdomen pelvis w con DATE: 09/25/2024 01:09 INDICATION: Abdominal pain TECHNIQUE: Computed tomography (CT) of the abdomen and pelvis was performed with 100 mL Omnipaque-350 intravenous contrast. Automated exposure control and iterative reconstruction technique were employe d. The dose-length product was 826.14 mGy-cm. COMPARISON: 04/03/2024 FINDINGS: Calcified nodules in the right lower lobe and lingula along with calcified mediastinal and bilateral hilar lymph nodes and a few scattered splenic calcifications, all consistent with old granulomatous d isease. Heart size is normal. No pericardial or pleural effusion. Small sliding-type hiatal hernia. L iver, gallbladder, pancreas, bilateral adrenal glands and right kidney are normal. 2 mm nonobstructin g stone at a lower pole calyx of the left kidney. There are few diverticula along the sigmoid colon w ithout adjacent inflammatory stranding to suggest diverticulitis. No bowel obstruction. Bladder, ante verted uterus and bilateral adnexa are unremarkable. Minimal likely physiologic free fluid in the pel vis. No abscess or free intraperitoneal gas. No pathologically enlarged abdominal or pelvic lymphaden opathy. Moderate lumbar spondylosis. IMPRESSION: 1. No acute intra-abdominal/pelvic process. 2. 2 mm nonobstructing left renal stone. Reviewed, dictated and finalized at location A. ARCHITECT
[2024-09-24 23:17] VITALS: BP 172/50; PULSE 100; RESP 18; TEMP 37.5; O2SAT 95
[2024-09-25 00:05] VITALS: BP 136/68; PULSE 95; RESP 17; O2SAT 94
[2024-09-25 00:38] LABS: Basophils Percent Auto 0.2 % (0.2-1.2); Eosinophils Absolute Auto 0.3 K/mm3 (0-0.3); Eosinophils Percent Auto 5.1 % (0-4.4); Hematocrit 34.4 % (37.0-47.0); Hemoglobin 11.4 g/dL (12.0-15.0); Immature Granulocyte Absolute 0.02 K/mm3 (0.00-0.031); Immature Granulocyte Percent A 0.4 % (0-0.5); Lymphocytes Absolute Auto 0.25 K/mm3 (0.9-3.2); Lymphocytes Percent Auto 5.1 % (18.3-44.2); Mean Corpuscular HGB Conc 33.1 g/dl (32-36); Mean Corpuscular Hemoglobin 30.2 pg (26-34); Mean Corpuscular Volume 91.2 fl (80-100); Monocytes Absolute Auto 0.2 K/mm3 (0.1-0.6); Monocytes Percent Auto 4.7 % (2.6-8.5); Neutrophils Absolute Auto 4.2 K/mm3 (1.3-6.7); Neutrophils Percent Auto 84.5 % (45.5-73.1); Platelet Count Result 176 k/mm3 (150-375); Red Blood Count 3.77 M/mm3 (4.2-5.4); Red Cell Distribution Width 13.3 % (11.5-14.5); White Blood Count 4.9 K/mm3 (4.5-10.0)
[2024-09-25 00:54] LABS: Alanine Aminotransferase 51 U/L (6-35); Albumin Level 3.5 g/dL (3.5-5.1); Alkaline Phosphatase 76 U/L (38-126); Anion Gap 9 mmol/L (4-12); Aspartate Amino Transferase 67 U/L (14-36); Bilirubin,Total 0.4 mg/dL (0.2-1.3); Blood Urea Nitrogen 17 mg/dL (7-17); Calcium 8.1 mg/dL (8.4-10.2); Carbon Dioxide 24 mmol/L (22-30); Chloride 105 mmol/L (98-107); Estimated Glomerular Filt Rate > 60; Glucose 202 mg/dL (65-110); Lipase 133 U/L (23-300); Potassium 3.4 mmol/L (3.4-5.0); Sodium 138 mmol/L (137-145)
[2024-09-25] MEDS: MORPHINE SULFATE (*CRX) 4 MG/ML INJ IV PUSH (01:18)
[2024-09-25] MEDS: ONDANSETRON INJ 4 MG/2 ML VIAL IV PUSH (01:18)
[2024-09-25] MEDS: SODIUM CHLORIDE 0.9% IV 1,000 ML 999 ML IV CONT (01:18)
--- NOTE | 2024-09-25 01:38 | ED.GENADULT ---
HPI - General Adult General Chief complaint: Nausea/Vomiting/Diarrhea Stated complaint: i think its diverticulitis Time Seen by Provider: 09/25/24 00:51 History of Present Illness HPI narrative: patient is a 63-year-old female who presents emergency department with chief complaint of abdominal discomfort bloating and gas patient reports he has had a fever at home and reports that she was concerned that she may have diverticulitis as she was diagnosed back in April with an episode of diverticulitis. Related Data Home Medications Medication Instructions Recorded Confirmed cholecalciferol (vitamin D3) 25 25 mcg PO DAILY 05/29/23 07/09/24 mcg (1,000 unit) capsule omega 2-wiz-thx-fish oil 60 mg-90 1 cap PO DAILY 05/29/23 07/09/24 mg-500 mg capsule estradiol 0.01% (0.1 mg/gram) 1 appful vaginal DAILY 08/01/23 07/09/24 vaginal cream ascorbate calcium (vitamin C) 500 500 mg PO DAILY 03/05/24 07/09/24 mg tablet clobetasol 0.05 % topical ointment 1 applic topical DAILY 03/05/24 07/09/24 ferrous sulfate 325 mg (65 mg 325 mg PO DAILY 03/05/24 07/09/24 iron) tablet triamcinolone acetonide 0.1 % 1 applic topical BID 03/05/24 07/09/24 topical cream Allergies Allergy/AdvReac Type Severity Reaction Status Date / Time loratadine AdvReac Mild Anxiety Verified 09/24/24 23:20 nitrofurantoin AdvReac Mild Nausea Verified 09/24/24 23:20 azelastine AdvReac Unknown SLEEPY Verified 09/24/24 23:20 indomethacin AdvReac Unknown Nausea and Verified 09/24/24 23:20 Vomiting amoxicillin [From Augmentin] AdvReac Headache Verified 09/24/24 23:20 clavulanic acid AdvReac Headache Verified 09/24/24 23:20 [From Augmentin] Review of Systems Review of Systems: A 10 system review of systems was completed on the patient and is negative except for what is stated in the HPI. Nursing and ancillary documentation was reviewed. [facility] Past Medical History Medical History BMI 36.0-36.9,adult BMI 37.0-37.9, adult Essential (primary) hypertension Family history of colon cancer Hallux limitus of left foot Hypothyroidism, unspecified BRANDI (obstructive sleep apnea) Rectal itching Surgical History Surgical History History of carpal tunnel release of both wrists 2011 History of endometrial ablation Family History Family History Mother Family history of cataracts Hypertension Family history of diabetes mellitus in first degree relative Sibling Hypertension Carcinoma of colon Grandparent Carcinoma of colon Father , yesterday. Dementia Other Diabetes mellitus Family history of malignant melanoma Social History Social History Smoking status: Never smoker Second hand tobacco smoke exposure: No Alcohol intake: current Drinks per week: 1 Alcohol use details: occasionally Substance use: never Substance use type: does not use Do You Feel Safe in your Home?: Yes Lack of Transportation: No Lack of Food: Never True Current Housing: I Have Housing Concerned About Future Housing: No Difficulty Paying Gas/Electric Bills: No Difficulty Paying for Meds: No Currently Unemployed: No Education: Master's Degree or Higher Difficulty w/ Childcare or Family Care: No Living arrangements: with family 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 HEAD: Normocephalic, atraumatic. EYES: PERRLA and EOMI. ENT: Nares clear, no rhinorrhea or epistaxis. Mucous membranes moist. NECK: Supple. CHEST: Clear to auscultation. No respiratory distress. HEART: Regular rate and rhythm. No murmur heard. Normal peripheral pulses. ABDOMEN: Soft, Tenderness to palpation in the abdomen no guarding no rebound, nondistended, normal active bowel sounds. EXTREMITIES: Normal range of motion. No edema. SKIN: Warm, dry, no rash. NEURO: No focal deficits. Alert and oriented x3. PSYCH: Normal mood and affect. Course Vital Signs Vital signs: Vital Signs Temperature 37.5 C 09/24/24 23:17 Pulse Rate 100 09/24/24 23:17 Respiratory Rate 18 11/27/24 23:17 Blood Pressure 172/50 H 09/24/24 23:17 Pulse Oximetry 95 09/24/24 23:17 Oxygen Delivery Room Air 09/24/24 23:17 Temperature 37.5 C 09/24/24 23:17 Pulse Rate 95 09/25/24 00:05 Respiratory Rate 17 09/25/24 00:05 Blood Pressure 136/68 09/25/24 00:05 Pulse Oximetry 94 09/25/24 00:05 Oxygen Delivery Room Air 09/24/24 23:17 Medical Decision Making MDM Narrative Medical decision making narrative: Differential diagnosis includes diverticulitis, colitis, intra-abdominal infection laboratory studies were obtained on the patient showed white count electrolytes are within normal limits the patient did have a slightly low calcium and AST and ALT were slightly elevated glucose was [address] scan of the abdomen pelvis showed no acute abnormality Vital Signs Vital Signs: Vital Signs Temperature 37.5 C 09/24/24 23:17 Pulse Rate 100 09/24/24 23:17 Respiratory Rate 18 09/24/24 23:17 Blood Pressure 172/50 H 09/24/24 23:17 Pulse Oximetry 95 09/24/24 23:17 Oxygen Delivery Room Air 09/24/24 23:17 Temperature 37.5 C 09/24/24 23:17 Pulse Rate 95 09/25/24 00:05 Respiratory Rate 17 09/25/24 00:05 Blood Pressure 136/68 09/25/24 00:05 Pulse Oximetry 94 09/25/24 00:05 Oxygen Delivery Room Air 09/24/24 23:17 Lab Data 09/25/24 00:32 09/25/24 00:32 Labs: Lab Results 09/25/24 Range/Units 00:32 WBC 4.9 (4.5-10.0) K/mm3 RBC 3.77 L (4.2-5.4) M/mm3 Hgb 11.4 L (12.0-15.0) g/dL Hct 34.4 L (37.0-47.0) % MCV 91.2 (80-100) fl MCH 30.2 (26-34) pg MCHC 33.1 (32-36) g/dl RDW 13.3 (11.5-14.5) % Plt Count 176 (150-375) k/mm3 MPV 10.0 (7.4-10.4) fl Immature Gran % (Auto) 0.4 (0-0.5) % Neut % (Auto) 84.5 H (45.5-73.1) % Lymph % (Auto) 5.1 L (18.3-44.2) % [place] % (Auto) 4.7 (2.6-8.5) % Eos % (Auto) 5.1 H (0-4.4) % Baso % (Auto) 0.2 (0.2-1.2) % Lymph # (Auto) 0.25 L (0.9-3.2) K/mm3 [place] # (Auto) 0.2 (0.1-0.6) K/mm3 Eos # (Auto) 0.3 (0-0.3) K/mm3 Baso # (Auto) 0.0 (0.0-0.1) K/mm3 Abs Immat Gran (auto) 0.02 (0.00-0.031) K/mm3 Absolute Neuts (auto) 4.2 (1.3-6.7) K/mm3 Absolute Nucleated RBC 0.000 (0.0-0.012) K/mm3 Nucleated RBC % 0.0 (0.0-0.2) % Sodium 138 (137-145) mmol/L Potassium 3.4 (3.4-5.0) mmol/L Chloride 105 (98-107) mmol/L Carbon Dioxide 24 (22-30) mmol/L Anion Gap 9 (4-12) mmol/L BUN 17 (7-17) mg/dL Creatinine 0.70 (0.7-1.0) mg/dL Estim Creat Clear Calc Not Reportable Estimated GFR > 60 (59 - ) Glucose 202 H (65-110) mg/dL Calcium 8.1 L (8.4-10.2) mg/dL Total Bilirubin 0.4 (0.2-1.3) mg/dL AST 67 H (14-36) U/L ALT 51 H (6-35) U/L Alkaline Phosphatase 76 (38-126) U/L Total Protein 6.0 L (6.3-8.2) g/dL Albumin 3.5 (3.5-5.1) g/dL Lipase 133 (23-300) U/L Discharge Plan Discharge Clinical Impression: Abdominal pain Patient Disposition: Home, Self-Care Condition: Stable Instructions: Antibiotic Form, Abdominal Pain (ED) Prescriptions: New dicyclomine 20 mg tablet 20 mg PO QID PRN (Reason: abdominal discomfort) Qty: 20 0RF ondansetron 4 mg tablet,disintegrating 4 mg PO Q8H PRN (Reason: nausea and vomiting) Qty: 10 0RF No Action cholecalciferol (vitamin D3) 25 mcg (1,000 unit) capsule 25 mcg PO DAILY omega 3-gbl-lqv-fish oil 60-90-500 mg capsule 1 cap PO DAILY estradiol 0.01 % (0.1 mg/gram) cream 1 appful vaginal DAILY Rx Instructions: for 14 days ferrous sulfate 325 mg (65 mg iron) tablet 325 mg PO DAILY ascorbate calcium (vitamin C) 500 mg tablet 500 mg PO DAILY triamcinolone acetonide 0.1 % cream 1 applic topical BID clobetasol 0.05 % ointment 1 applic topical DAILY (DME) CPAP Equipment See Rx Instructions .Route .MEDSUPPLY Qty: 1 0RF Rx Instructions: Rx: Change pressure to CPAP 12 cm with EPR of 2 Dx: G47.33 DME: [facility] [place] HomePatient Physician: Dr. Mariza Kothari DO lisinopril 40 mg tablet 40 mg PO DAILY Qty: 90 3RF citalopram 40 mg tablet 40 mg PO DAILY Qty: 90 3RF levothyroxine 75 mcg tablet 75 mcg PO DAILY Qty: 90 3RF modafinil 100 mg tablet 100 mg PO QAM Qty: 90 0RF ondansetron 4 mg tablet,disintegrating 4 mg PO Q8H PRN (Reason: nausea and vomiting) Qty: 14 0RF Follow-up/Referrals: Mariusz Tolbert MD [Primary Care Provider] - Time of Disposition: 02:25
[2024-09-25 02:17] VITALS: BP 130/70; PULSE 80; RESP 17; O2SAT 93
== END 2024-09-25 02:45 | disposition home or self-care (01) ==
PROVIDERS: Emergency Provider Emergency Medicine; PCP Family Medicine
DX: R10.9 Unspecified abdominal pain (principal); I10 Essential (primary) hypertension; E03.9 Hypothyroidism, unspecified; G47.33 Obstructive sleep apnea (adult) (pediatric); Z79.899 Other long term (current) drug therapy; N20.0 Calculus of kidney
CPT/HCPCS: 36415; 74177; 80053; 81001; 83690; 85025; 85027; 96361; 96374; 96375; 99284; J2270; J2405; J7030; Q9967

== ENCOUNTER 2024-09-28 01:25 | Emergency (ER) | payer OTHER, SELFPAY ==
[2024-09-28 01:26] VITALS: BP 150/86; PULSE 87; RESP 18; TEMP 37.5; O2SAT 96
[2024-09-28 04:01] LABS: Basophils Percent Auto 0.5 % (0.2-1.2); Eosinophils Absolute Auto 0.3 K/mm3 (0-0.3); Eosinophils Percent Auto 4.8 % (0-4.4); Hematocrit 32.4 % (37.0-47.0); Hemoglobin 11.1 g/dL (12.0-15.0); Immature Granulocyte Absolute 0.03 K/mm3 (0.00-0.031); Immature Granulocyte Percent A 0.5 % (0-0.5); Lymphocytes Percent Auto 7.1 % (18.3-44.2); Mean Corpuscular HGB Conc 34.3 g/dl (32-36); Mean Corpuscular Hemoglobin 30.1 pg (26-34); Mean Corpuscular Volume 87.8 fl (80-100); Mean Platelet Volume 10.4 fl (7.4-10.4); Monocytes Absolute Auto 0.2 K/mm3 (0.1-0.6); Monocytes Percent Auto 3.7 % (2.6-8.5); Neutrophils Absolute Auto 4.7 K/mm3 (1.3-6.7); Neutrophils Percent Auto 83.4 % (45.5-73.1); Platelet Count Result 214 k/mm3 (150-375); Red Blood Count 3.69 M/mm3 (4.2-5.4); Red Cell Distribution Width 13.9 % (11.5-14.5); White Blood Count 5.7 K/mm3 (4.5-10.0)
[2024-09-28 04:06] LABS: Add Urine Microscopic? YES; Appearance Urine Clear (Clear); Bacteria Urine 1+ /hpf; Bilirubin Urine 1+ (Negative); Blood Urine Negative (Negative); Color Urine Dark Yellow (Yellow); Glucose Urine UA Negative (Negative); Ketones Urine Negative (Negative); Leukocyte Esterase Ur Trace LEU/UL (Negative); Nitrate Urine Negative (Negative); Non Pathogenic Casts 0-2; Protein Urine Trace mg/dL (Negative); RBC Urine 0-2 /hpf (0-2); Specific Grav Ur 1.023 (1.001-1.035); Squamous Epithelial Cell Urine Moderate /hpf (Few); WBC Urine 0-5 /hpf (0-3)
[2024-09-28 04:12] LABS: Alanine Aminotransferase 46 U/L (6-35); Albumin Level 3.5 g/dL (3.5-5.1); Alkaline Phosphatase 84 U/L (38-126); Anion Gap 3 mmol/L (4-12); Aspartate Amino Transferase 46 U/L (14-36); Bilirubin,Total 0.4 mg/dL (0.2-1.3); Blood Urea Nitrogen 8 mg/dL (7-17); Carbon Dioxide 26 mmol/L (22-30); Chloride 104 mmol/L (98-107); Estimated Glomerular Filt Rate > 60; Glucose 128 mg/dL (65-110); Lipase 56 U/L (23-300); Potassium 3.2 mmol/L (3.4-5.0); Sodium 133 mmol/L (137-145)
--- NOTE | 2024-09-28 04:26 | ED_ITS ---
HPI - Abdominal Pain General Chief Complaint: Abdominal Pain Stated Complaint: fever, headache, nausea, abdominal pain Time Seen by Provider: 09/28/24 04:03 History of Present Illness HPI narrative: 63-year-old female with a past medical history significant for diverticulitis. Presents to the emergency department today with continued complaints of abdominal discomfort, bloating, weight gain, gas, subjective fevers at home. Patient was seen and evaluated in this emergency department several days prior and underwent a thorough investigative workup including laboratory studies, urin alysis, CT scan of the abdomen and pelvis. Overall she was sent home without any acute findings on imaging or workup and she was stable. She states that she has been taking some supplementations at home at the recommendations were PCP including G LP 1 probiotics and another herbal medication. She thinks that these are causing her symptoms as she initially had resolution of her symptoms when she stopped taking of earlier this week and then again had her symptoms when she started taking them. Denies any present diarrhea, abdominal pain, chest pain, shortness a breath, fever. Patient states that her medications are causing a reaction and that they are because of her symptoms today. Related Data Home Medications Medication Instructions Recorded Confirmed cholecalciferol (vitamin D3) 25 25 mcg PO DAILY 05/29/23 07/09/24 mcg (1,000 unit) capsule omega 8-hyb-evv-fish oil 60 mg-90 1 cap PO DAILY 05/29/23 07/09/24 mg-500 mg capsule estradiol 0.01% (0.1 mg/gram) 1 appful vaginal DAILY 08/01/23 07/09/24 vaginal cream ascorbate calcium (vitamin C) 500 500 mg PO DAILY 03/05/24 07/09/24 mg tablet clobetasol 0.05 % topical ointment 1 applic topical DAILY 03/05/24 07/09/24 ferrous sulfate 325 mg (65 mg 325 mg PO DAILY 03/05/24 07/09/24 iron) tablet triamcinolone acetonide 0.1 % 1 applic topical BID 03/05/24 07/09/24 topical cream Allergies Allergy/AdvReac Type Severity Reaction Status Date / Time loratadine AdvReac Mild Anxiety Verified 09/24/24 23:20 nitrofurantoin AdvReac Mild Nausea Verified 09/24/24 23:20 azelastine AdvReac Unknown SLEEPY Verified 09/24/24 23:20 indomethacin AdvReac Unknown Nausea and Verified 09/24/24 23:20 Vomiting amoxicillin [From Augmentin] AdvReac Headache Verified 09/24/24 23:20 clavulanic acid AdvReac Headache Verified 09/24/24 23:20 [From Augmentin] Review of Systems Review of Systems: As reviewed above in [facility] Past Medical History Medical History BMI 36.0-36.9,adult BMI 37.0-37.9, adult Essential (primary) hypertension Family history of colon cancer Hallux limitus of left foot Hypothyroidism, unspecified BRANDI (obstructive sleep apnea) Rectal itching Surgical History Surgical History History of carpal tunnel release of both wrists 2011 History of endometrial ablation Family History Family History Mother Family history of cataracts Hypertension Family history of diabetes mellitus in first degree relative Sibling Hypertension Carcinoma of colon Grandparent Carcinoma of colon Father , yesterday. Dementia Other Diabetes mellitus Family history of malignant melanoma Social History Social History Smoking status: Never smoker Second hand tobacco smoke exposure: No Alcohol intake: current Drinks per week: 1 Alcohol use details: occasionally Substance use: never Substance use type: does not use Do You Feel Safe in your Home?: Yes Lack of Transportation: No Lack of Food: Never True Current Housing: I Have Housing Concerned About Future Housing: No Difficulty Paying Gas/Electric Bills: No Difficulty Paying for Meds: No Currently Unemployed: No Education: Master's Degree or Higher Difficulty w/ Childcare or Family Care: No Living arrangements: with family 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 Mucous membranes moist. NECK: Supple. CHEST: [Clear to auscultation. No respiratory distress.] HEART: [Regular rate and rhythm]. No murmur heard. [Normal peripheral pulses.] ABDOMEN: [Soft, nondistended], [nontender], [No rigidity or guarding] EXTREMITIES: Normal range of motion. [No edema.] SKIN: Warm, dry, no rash. NEURO: [No focal deficits]. Alert and oriented [x3.] PSYCH: [Normal mood and affect.] Course Vital Signs Vital signs: Vital Signs Temperature 37.5 C 09/28/24 01:26 Pulse Rate 87 09/28/24 01:26 Respiratory Rate 18 09/28/24 01:26 Blood Pressure 150/86 H 09/28/24 01:26 Pulse Oximetry 96 09/28/24 01:26 Oxygen Delivery Room Air 09/28/24 01:26 Temperature 37.5 C 09/28/24 01:26 Pulse Rate 87 09/28/24 01:26 Respiratory Rate 18 09/28/24 01:26 Blood Pressure 150/86 H 09/28/24 01:26 Pulse Oximetry 96 09/28/24 01:26 Oxygen Delivery Room Air 09/28/24 01:26 MDM - Abdominal Pain MDM Narrative Medical decision making narrative: 63-year-old female with history of diverticulosis and previous diverticulitis. She was seen and evaluated 3 days prior for complaints of nonspecific nauseousness, abdominal discomfort, bloating, weight gain, occasional diarrhea. She had an unremarkable workup was sent home. Has not followed up with her primary care provider. Returns for repeat evaluation today and she thinks that her medications including AG LP 1 probiotic and other herbal medication or causing reaction and causing her symptoms to worsen. Patient is describing nonspecific gastroenteritis she symptoms but otherwise appears very well and has a nontender nondistended abdomen. No fever here, no significant blood pressure concerns, tachycardia, hypoxia or tachypnea. Patient fixates on her supplements and wants to be tested for any possible reaction to them. I politely inform the patient that that would not be possible specially emergency department setting. Given her continued abdominal complaints we did order a workup including repeat laboratory studies shows a CBC, CMP, lipase and urinalysis. Given the lack of abdominal pain or vital concerns or any kind of physical exam findings consistent for intra-abdominal process elected to hold off on any repeat images given her unremarkable workup just 3 days prior. Will re-evaluate after laboratory studies and decide about disposition although patient can likely be safely discharged home with PCP follow-up encouraged to stop taking her supplements until being seen by the provider that gave them to her. Laboratory studies showed no leukocytosis or anemia worse than her baseline. Normal platelets. Electrolytes show some minor hypokalemia but accounting for lab margin of error this is in her line or baseline hypokalemia. No acute exacerbation. Normal renal function panel,. Hepatic function panel in line with her normal baseline levels. Negative lipase. Urinalysis without a convincing evidence of urinary tract infection. Overall given patient's reassuring laboratory studies and examination findings I believe she is stable for discharge home with regular PCP follow-up to discuss or supplements and changes to them if they are causing her symptoms. Patient verbalized agreement with this plan and was given return precautions including worsening abdominal pain or any new or worsening concerns. Medical Records Attestation: I reviewed the patient's medical records. Lab Data Attestation: I reviewed the patient's lab results. 09/28/24 03:51 09/28/24 03:51 Labs: Lab Results 09/28/24 Range/Units 03:51 WBC 5.7 (4.5-10.0) K/mm3 RBC 3.69 L (4.2-5.4) M/mm3 Hgb 11.1 L (12.0-15.0) g/dL Hct 32.4 L (37.0-47.0) % MCV 87.8 (80-100) fl MCH 30.1 (26-34) pg MCHC 34.3 (32-36) g/dl RDW 13.9 (11.5-14.5) % Plt Count 214 (150-375) k/mm3 MPV 10.4 (7.4-10.4) fl Immature Gran % (Auto) 0.5 (0-0.5) % Neut % (Auto) 83.4 H (45.5-73.1) % Lymph % (Auto) 7.1 L (18.3-44.2) % [place] % (Auto) 3.7 (2.6-8.5) % Eos % (Auto) 4.8 H (0-4.4) % Baso % (Auto) 0.5 (0.2-1.2) % Lymph # (Auto) 0.40 L (0.9-3.2) K/mm3 [place] # (Auto) 0.2 (0.1-0.6) K/mm3 Eos # (Auto) 0.3 (0-0.3) K/mm3 Baso # (Auto) 0.0 (0.0-0.1) K/mm3 Abs Immat Gran (auto) 0.03 (0.00-0.031) K/mm3 Absolute Neuts (auto) 4.7 (1.3-6.7) K/mm3 Absolute Nucleated RBC 0.000 (0.0-0.012) K/mm3 Nucleated RBC % 0.0 (0.0-0.2) % Sodium 133 L (137-145) mmol/L Potassium 3.2 L (3.4-5.0) mmol/L Chloride 104 (98-107) mmol/L Carbon Dioxide 26 (22-30) mmol/L Anion Gap 3 L (4-12) mmol/L BUN 8 D (7-17) mg/dL Creatinine 0.70 (0.7-1.0) mg/dL Estim Creat Clear Calc Not Reportable Estimated GFR > 60 (59 - ) Glucose 128 H (65-110) mg/dL Calcium 8.0 L (8.4-10.2) mg/dL Total Bilirubin 0.4 (0.2-1.3) mg/dL AST 46 H (14-36) U/L ALT 46 H (6-35) U/L Alkaline Phosphatase 84 (38-126) U/L Total Protein 6.0 L (6.3-8.2) g/dL Albumin 3.5 (3.5-5.1) g/dL Lipase 56 (23-300) U/L Urine Color Dark yellow (Yellow) Urine Appearance Clear (Clear) Urine pH 6.0 (5.0-9.0) Ur Specific [place] 1.023 (1.001-1.035) Urine Protein Trace (Negative) mg/dL Urine Glucose (UA) Negative (Negative) mg/dL Urine Ketones Negative (Negative) mg/dL Ur Blood (Man) Negative (Negative) Urine Nitrate Negative (Negative) Urine Bilirubin 1+ H (Negative) Urine Urobilinogen 1.0 (<2.0) mg/dL Leukocyte Esterase Rfl Trace H (Negative) BRITNI/UL Urine RBC 0-2 (0-2) /hpf Urine WBC 0-5 (0-3) /hpf Ur Squamous Epith Cells Moderate (Few) /hpf Urine Bacteria 1+ H /hpf Urine Casts 0-2 Discharge Plan Discharge Clinical Impression: Abdominal pain Patient Disposition: Home, Self-Care Condition: Stable Instructions: Antibiotic Form, Abdominal Pain (ED) Additional Instructions: Your laboratory studies are reassuring. No interval changes from your studies few days prior. Your recent CT scan was also reassuring without any acute findings. Given the only changes to her regimen recently are your supplements that you are taking I believe that these could also be causing her symptoms and need to discuss this with your primary care provider. If you have any worsening concerns or any new symptoms that need to be addressed please return to the emergency department but you can safely see your PCP outpatient. Prescriptions: No Action cholecalciferol (vitamin D3) 25 mcg (1,000 unit) capsule 25 mcg PO DAILY omega 0-jir-qkf-fish oil 60-90-500 mg capsule 1 cap PO DAILY estradiol 0.01 % (0.1 mg/gram) cream 1 appful vaginal DAILY Rx Instructions: for 14 days ferrous sulfate 325 mg (65 mg iron) tablet 325 mg PO DAILY ascorbate calcium (vitamin C) 500 mg tablet 500 mg PO DAILY triamcinolone acetonide 0.1 % cream 1 applic topical BID clobetasol 0.05 % ointment 1 applic topical DAILY dicyclomine 20 mg tablet 20 mg PO QID PRN (Reason: abdominal discomfort) Qty: 20 0RF ondansetron 4 mg tablet,disintegrating 4 mg PO Q8H PRN (Reason: nausea and vomiting) Qty: 10 0RF (DME) CPAP Equipment See Rx Instructions .Route .MEDSUPPLY Qty: 1 0RF Rx Instructions: Rx: Change pressure to CPAP 12 cm with EPR of 2 Dx: G47.33 DME: [place] HomePatient Physician: Dr. Mariza Kothari DO lisinopril 40 mg tablet 40 mg PO DAILY Qty: 90 3RF citalopram 40 mg tablet 40 mg PO DAILY Qty: 90 3RF levothyroxine 75 mcg tablet 75 mcg PO DAILY Qty: 90 3RF modafinil 100 mg tablet 100 mg PO QAM Qty: 90 0RF ondansetron 4 mg tablet,disintegrating 4 mg PO Q8H PRN (Reason: nausea and vomiting) Qty: 14 0RF Follow-up/Referrals: Mariusz Tolbert MD [Primary Care Provider] - Time of Disposition: 05:15
== END 2024-09-28 05:32 | disposition home or self-care (01) ==
PROVIDERS: Emergency Provider Student in an Organized Health Care Education/Training Program; PCP Family Medicine
DX: R10.9 Unspecified abdominal pain (principal); I10 Essential (primary) hypertension; E03.9 Hypothyroidism, unspecified; G47.33 Obstructive sleep apnea (adult) (pediatric)
CPT/HCPCS: 36415; 80053; 81001; 83690; 85025; 99283

== ENCOUNTER 2025-09-16 08:30 | Outpatient (CLI) | payer OTHER, SELFPAY ==
--- NOTE | ~2025-09-16 | DEXA_ITS ---
Bone Density Report Name: JUANITO ADDISON Age: 64 Sex: Female Ethnicity: White Date of : 1960 Indication: postmenopausal; screening for osteoporosis; Referring Provider: REMINGTON, ILANA Amato Study: Bone densitometry was performed. Exam Date: September 16, 2025 Accession number: [id number] Bone Density: Region BMD T-score Z-score Classification AP Spine(L1-L4) 1.001 -0.4 1.2 Normal Femoral Neck (Left) 0.723 -1.1 0.3 Osteopenia Total Hip (Left) 1.030 0.7 1.9 Normal Femoral Neck (Right) 0.727 -1.1 0.3 Osteopenia Total Hip (Right) 1.041 0.8 2.0 Normal Total Hip Mean 1.036 0.8 2.0 Normal World Health Organization criteria for BMD impression classify patients as: Normal (T-score at or above -1.0), Osteopenia (T-score between -1.0 and -2.5), or Osteoporosis (T-score at or below -2.5). 10-year Fracture Risk(1): Major Osteoporotic Fracture 7.3% Hip Fracture 0.5% Reported Risk Factors: [place] (), Neck BMD=0.723, BMI=36.5 (1) FRAX(R) Version 3.08. Fracture probability calculated for an untreated patient. Fracture probability may be lower if the patient has received treatment. Previous Exams: Region Exam Age BMD T-score BMD Change BMD Change Date g/cm2 vs Baseline vs Previous AP Spine (L1-L4) 09/16/2025 64 1.001 -0.4 -0.042 (-4.0%) -0.042 (-4.0%) 04/05/2021 60 1.043 0.0 Total Hip(Left) 09/16/2025 64 1.030 0.7 0.021 (2.1%) 0.021 (2.1%) 04/05/2021 60 1.010 0.6 Total Hip(Right) 09/16/2025 64 1.041 0.8 0.108 (11.6%)* 0.108 (11.6%)* 04/05/2021 60 0.933 -0.1 *Denotes significance at 95% confidence level, LSC for AP Spine = 0.022 g/cm2, LSC for Total Hip = 0.027 g/cm2 Clinical Information Provided by Patient: Has used the following medications: Vitamin D, Calcium Patient maximum height was 59 Menopause Age: 52 No regular weight bearing exercise Drinks caffeinated beverages Onset of menses at age 13 Number of children 2 Impression: The patient has low bone mass, based on the Left Femoral Neck T-score. The patient has an estimated ten-year risk of hip fracture of 0.5% and an estimated ten-year risk of major fracture of 7.3%, based on the WHO FRAX algorithm. The BMD for the AP Spine (L1-L4) decreased, changing by -4.0% since the last DXA exam. Discussion: BONE DENSITY IS LOW AT ONE OR MORE SKELETAL SITES. This patient's lowest T-score is low at one or more skeletal sites. It meets the World Health Organization's (WHO) criteria for ?low bone mass? (T-score between -1.0 and -2.5). The patient's 10-year risk of fracture as calculated by FRAX is less than the threshold where pharmacological therapy is recommended by the National Osteoporosis Foundation (NOF). However, all treatment decisions require clinical judgment and consideration of individual patient factors, including patient preferences, comorbidities, previous drug use, risk factors not captured in the FRAX model (e.g., frailty, falls, vitamin D deficiency, increased bone turnover, interval significant decline in bone density) and possible under or overestimation of fracture risk by FRAX. The patient should follow a healthful lifestyle (good nutrition with adequate calcium and vitamin D, and appropriate weight-bearing exercise). Follow-Up: Consider repeating this study in 2 years to reassess this patient's status, or sooner if there is some new clinical indication. Reported by: FRANK on 09/16/2025 9:10:00 AM. Reviewed, dictated and finalized at location A.
== END 2025-09-16 08:31 | disposition home or self-care (01) ==
LOC: ANHFOHIMG 08:31
PROVIDERS: PCP Family Medicine; Visit Provider Nurse Practitioner
DX: Z78.0 Asymptomatic menopausal state (principal); M85.852 Other specified disorders of bone density and structure, left thigh; M85.851 Other specified disorders of bone density and structure, right thigh
CPT/HCPCS: 77080

== ENCOUNTER 2025-09-16 09:18 | Outpatient (CLI) | payer OTHER, SELFPAY ==
--- NOTE | 2025-09-16 | ECG_ITS ---
Test Date: 2025-09-16 10:23:08 Measurements Intervals [place] Rate: 54 P: 38 UT: 153 QRS: 34 QRSD: 92 T: 29 QT: 409 QTc: 391 Interpretive Statements SINUS BRADYCARDIA MINIMAL ST DEPRESSION [0.025+ mV ST DEPRESSION] ABNORMAL ECG No previous ECG available for comparison Electronically Signed On 09-16-2025 17:09:30 [employer] by Gavino Valencia M.D.
--- OUTSIDE RECORDS SUMMARY | 2025-09-16 12:10 | XMS_ITS | Encounter Summary ---
Author Organization [facility] Address [address] [place], [place] [address] [address] Care Team Providers Care Film Or Videotape Editor Name Role Phone Joann Chinchilla MD Unavailable [phone] Mariusz Tolbert MD Primary Care Provider [phone] Encounter Details Date Type Department Care Team (Late st Contact Info) Description 12/05/2023 Lab Requisition [facility] - DermPath Lab [address] [facility] ([place], [place]) [place] [id number] Arnel Rosenbaum MD [address] [place] [address] Social History Tobacco Use Types Packs/Day Years Used Date Smoking Tobacco: Never Smokeless Tobacco: Never Alcohol Use Standard Drinks/Week Comments Yes 0 (1 standard drink = 0.6 oz pur e alcohol) Comments No Sex and Gender Information Value Date Recorded Sex Assigned at Not on file Legal Sex Female 10:54 AM CDT Gender Identity Not on file Sexual Orientation Not on file documented as of this encounter Plan of Treatment Not on file documented as of this encounter Procedures Procedure Name Priority Date/Time Associated Diagnosis Comments DERMATOPATHOLOGY Routine 12/04/2023 3:33 AM CLIN ASST documented in this encounter Results * DERMATOPATHOLOGY (12/04/2023 3:33 AM CLIN ASST) Case Report Dermatopathology Report Case: [id number] Authorizing Provider: Arnel Rosenbaum MD Collected: 12/04/2023 03:33 AM Ordering Location: [facility] DermPath Lab Received: 12/05/2023 04:33 PM Pathologist: Alyson Jane MD Specimen: Skin, right upper med chest 4 5:37 PM [facility] DERMATOPATHOLOGY LABORATORY Final Diagnosis Specimen A. 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 The specimen consists of a shave biopsy measuring 7x7x1 mm. Jar 0. 5:37 PM [facility] DERMATOPATHOLOGY LABORATORY Microscopic Description Specimen A. SKIN, right upper med chest: Sections show a perivascular and interstitial infiltrate including lymphocytes, histiocytes and eosinophils. There are no prominent epidermal or interface changes. Additional deeper sections were obtained and reviewed. COMMENT: These histological findings are often seen in hypersensitivity reactions such as may be seen secondary to an ingested allergen or arthropod bite (less likely in this case). Urticaria is a diagnostic consideration, however the perivascular infiltrate is somewhat dense for this entity. Clinicopathologic correlation is recommended. 5:37 PM [facility] DERMATOPATHOLOGY LABORATORY Disclaimer An external and internal positive and negative controls are appropriate for the histochemical, immunohistochemical and immunofluorescence stain(s) in this case (if any), except where stated explicitly. The performance characteristics of the stain(s) cited in this report were developed and its performance characteristic determined by the Dermatopathology Laboratory at [facility], directed by Dr. Jany Mckeon. These tests need not be, and therefore are not, approved by the [place] Food and Drug Administration. The tests are used for clinical purposes. Billing Codes Specimen Charges Stain Charges 32979 1 4 5:37 PM [facility] DERMATOPATHOLOGY LABORATORY Embedded Images 4 5:37 PM [facility] DERMATOPATHOLOGY LABORATORY Pathology/Cytolo gy TISSUE SPECIMEN FROM SKIN / Unknown 12/04/2023 3:33 AM CLIN ASST 12/05/2023 4:33 PM [facility] us Arnel Rosenbaum MD LAB - PATHOLOGY/CYTOLOGY ORD ERABLES Final Result DERMATOPATHOLOGY LABORATORY [facility] - Department of Dermatology [place] [id number] [facility], [address]rd Floor [address] [phone] documented in this encounter Visit Diagnoses Not on filedocumented in this encounter Care Teams Film Or Videotape Editor Relationship Specialty [place] [id number] [place] [address] [place] [id number] PCP - OBGYN Obstetrics and Gynecology 04/02/14 Mariusz Tolbert MD [address] [place] [address] PCP - General Family Medicine 05/03/16 documented as of this encounter
--- OUTSIDE RECORDS SUMMARY | 2025-09-16 12:10 | XMS_ITS | Clinical Summary ---
Author Organization [facility] [employer] Address [facility] [facility] [place] [address] Care Team Providers Care Crop Farm Helper Name Role Phone Joann Chinchilla MD Unavailable [phone] Mariusz Tolbert MD Primary Care Provider Source Comments [facility] [employer],non-owned Affiliates and Associated Physician Practices is amultiple site organization consisting of ambulatory clinics and hospital sitesin [place], [place], [place] and [place]. This disclosure is being madepursuant to the Care Everywhere program and may not contain all information available regarding this patient. Last updated 18.[facility] [employer] Allergies Active Allergy Reactions Criticality Noted Date Comments Indomethacin 04/02/2014 Medications * Be aware that medications may not be up to date on this document. Alwaysverify current medications with the patient. lisinopril (PRINIVIL; ZESTRIL) 40 MG tablet Take 40 mg by mouth once daily. Active levothyroxine (SYNTHROID) 75 MCG tablet Take 75 mcg by mouth daily before breakfast. Active valACYclovir (VALTREX) 1 GM tablet Take 1,000 mg by mouth every 12 hours. Active butalbital-aceta minophen-caffein e (FIORICET) 50-325-40 MG tablet 04/13/2015 Active vitamin D, ergocalciferol, (DRISDOL) 39034 UNITS capsule 01/21/2016 Activ e azelastine (ASTELIN) 0.1 % nasal spray 01/17/2016 Active Active Problems No known active problems Family History Medical History Relation Name Comments Cancer Brother colon Hypertension Brother Diabetes Father Hypertension Father Hypertension Maternal Grandfather Diabetes Maternal Grandmother Cancer Mother Oral Diabetes Mother Hypertension Mother Hypertension Sister Relation Name Status Comments Brother Father Maternal Grandfather Maternal Grandmother Mother Sister Social History Tobacco Use Types Packs/Day Years Used Date Smoking Tobacco: Never Smokeless Tobacco: Never Alcohol Use Standard Drinks/Week Comments Yes 0 (1 standard drink = 0.6 oz pur e alcohol) Comments No Sex and Gender Information Value Date Recorded Sex Assigned at Not on file Legal Sex Female 10:54 AM CDT Gender Identity Not on file Sexual Orientation Not on file Last Filed Vital Signs Vital Sign Reading Time Taken Comments Blood Pressure 126/85 05/03/2016 10:43 AM CDT Pulse 75 05/03/2016 10:43 AM CDT Temperature - - Respiratory Rate - - Oxygen Saturation - - Inhaled Oxygen Concentration - - Weight 78 kg (172 lb) 05/03/2016 10:43 AM CDT Height 149.9 cm (4' 11) 05/03/2016 10:43 AM CDT Body Mass Index 34.74 05/03/2016 10:43 AM CDT Plan of Treatment Health Maintenance Due Date Last Done Comments COLOGUARD (AGES 45-75) - COL ON CA SCREENING 1961 COLON MONITORING 1961 COLONOSCOPY - COLON CA SCREENING 1961 CT COLONOGRAPHY - COLON CA SCREENING 1961 Colorectal Cancer Screening 1961 FIT - COLON CA SCREENING 1961 FLEX SIG - COLON CA SCREENING 1961 LIPID TESTING 1961 HIV SCREENING 1976 HEPATITIS C SCREENING 12/27/1979 DTAP/TDAP/TD VACCINES (1 - Tdap) 1980 PNEUMOCOCCAL VACCINE 50+ (1 of 1 - PCV) 01/01/2012 ZOSTER VACCINE (1 of 2) 01/01/2012 Cervical Cancer Screening 04/23/2017 PAP SMEAR 04/23/2017 04/23/2014 MAMMOGRAM 08/23/2017 08/23/2015 PAP with HPV 04/23/2019 04/23/2014 DEPRESSION SCREENING 10/29/2024 COVID-19 VACCINE (1 - 2024-2 6 season) 2025 INFLUENZA VACCINE (#1) 2025 Respiratory Syncytial Virus (RSV) Vaccine Pt: or over 60 yrs (1 - 1-dose 75+ series) 2036 HEPATITIS B VACCINE Aged Out No longe r eligible based on patient's age to complete this topic HIB VACCINE Aged Out No longer eligi ble based on patient's age to complete this topic HPV VACCINE Aged Out No longer eligi ble based on patient's age to complete this topic MENINGOCOCCAL (Group B) VACC INE SHARED DECISION-MAKING Aged Out No longer eligibl e based on patient's age to complete this topic MENINGOCOCCAL GROUPS A/C/Y/W VACCINE Aged Out No longer eligible b ased on patient's age to complete this topic Procedures Procedure Name Priority Date/Time Associated Diagnosis Comments MAMMOGRAPHY ORDER Routine 08/23/2015 PAP W AMANDA HPV HR+HPV 16/18 Routine 04/23/2014 3:38 PM CDT Routine gynecological examination from Last 3 Months or Most Recently Relevant to Health Maintenance Results * MAMMOGRAPHY ORDER (08/23/2015) Anatomical Region Laterality Modality Other us Joann Chinchilla MD MAMMO ORDERABLES Final Result * PAP W AMANDA HPV HR+HPV 16/18 (PO REF LAB) (04/23/2014 3:38 PM CDT) Diagnosis [facility] ACCOUNT BILL Comment:NEGATIVE FOR INTRAEP ITHELIAL LESION AND MALIGNANCY. Specimen Adequacy [facility] ACCOUNT BILL Comment: Satisfactory for evaluation. Endocervical and/or squamous metaplastic cells (endocervical component) are present. Clinician Provided ICD9 [facility] ACCOUNT BILL Comment:V72.31 ; Routine endoscopy support specialist ecological examination Performed by [facility] ACCOUNT BILL Comment:Felicity Michelle [employer] hnologist (ASCP) Comment . [facility] ACCOUNT BILL Note [facility] ACCOUNT BILL Comment: The Pap smear is a screening test designed to aid in the detection of premalignant and malignant conditions of the uterine cervix. It is not a diagnostic procedure and should not be used as the sole means of detecting cervical cancer. Both false-positive and false-negative reports do occur. . IGLBP CPT Code Automation [facility] ACCOUNT BILL Comment: This liquid based ThinPrep(R) pap test was screened with the use of an image guided system. Human papillomavirus Other hr types Negative Negative [facility] ACCOUNT BILL Human papillomavirus 16 Negative Negative [facility] ACCOUNT BILL Human papillomavirus 18 Negative Negative [facility] ACCOUNT BILL Comment: This test detects fourteen high-risk HPV types: HPV16, HPV18 and twelve other high-risk types (31, 33, 35, 39, 45, 51, 52, 56, 58, 59, 66, 68) without differentiation. MICROSCOPIC CYTOLOGIC EXAMINATION OF SMEAR OF SPECIMEN FROM FEMALE GENITAL TRACT PREPARED USING PAPANICOLAOU TECHNIQUE / Unknown 04/23/2014 3:38 PM CDT 04/24/2014 1:01 AM CDT Narrative [facility] ACCOUNT BILL - 05/01/2014 3:15 AM CDT Source.............Cervical No. of containers..01 CYTYC Thin Prep Vial Resulting Agency Comment [facility] [place] [place] [phone] Joann Chinchilla MD LAB - PATHOLOGY/CYTOLOGY MAYE SINGER Final Result [facility] ACCOUNT BILL [address] [place] [address] from Last 3 Months or Most Recently Relevant to Health Maintenance [facility] CIGNA CIGNA Care Teams Crop Farm Helper Relationship Specialty Start [place] [address] [facility] [address] [place] [id number] PCP - OBGYN Obstetrics and Gynecology 04/02/14 Mariusz Tolbert MD [address] [place] [phone] PCP - General Family Medicine 05/03/16
--- OUTSIDE RECORDS SUMMARY | 2025-09-16 12:10 | XMS_ITS | Clinical Summary ---
Author Organization [facility] Address [address] [place] [address] Care Team Providers Care Air Brush Decorator Name Role Phone Mariusz Tolbert MD Primary Care Provider Allergies Active Allergy Reactions Criticality Noted Date Comments Amoxicillin-Pot Clavulanate Headache Low 09/04/2024 Azelastine-Fluticasone Other (See comments) Low 09/27/2023 Causes sleepiness Loratadine Other (See comments) Low 09/27/2023 tingling Indomethacin Nausea only,Vomiting Reaction: Nausea, Vomiting, Nitrofurantoin Monohyd/M-Cryst Swelling Medium 09/30/2018 Medications levothyroxine (SYNTHROID) 75 mcg tablet Take one by mouth one time per day 30 0 8 Active citalopram (CeleXA) 40 mg tablet TAKE ONE TABLET BY MOUTH ONCE DAILY 90 1 4 Active lisinopril (PRINIVIL,ZESTR IL) 40 mg tablet TAKE ONE TABLET BY MOUTH ONCE DAILY 90 1 3 Active lancets (freestyle) 28 gauge misc Take 2-3 as directed 100 5 9 Active blood glucose diagnostic (NON-FORMULARY) strip Take as directed pt tests twice daily freestyle freedom lite test strips 100 3 9 Active calcium carbonate-vitam in D3 600 mg (1,500 mg)-800 unit tablet,chewable Take by mouth. Active fluticasone propionate (FLONASE) 50 mcg/actuation nasal spray Administer 1 spray into each nostril daily Active estradioL (ESTRACE) 0.01 % (0.1 mg/gram) vaginal cream INSERT 1 G VAGINALLY AT BEDTIME 3 TIMES PER WEEK 4 Active modafiniL (PROVIGIL) 100 mg tablet Take 1 tablet (100 mg total) by mouth as needed 4 Active Active Problems Problem Noted Date Diagnosed Date Metabolic dysfunction-associ ated steatotic liver disease (MASLD) 09/29/2018 Assessment & Plan (09/07/2025 11:46 AM CRANE HOIST OR LIFT OPERATOR): Stable, overall improved with normal liver chemistries in the face of weight loss. Otherwise, I encouraged her to continue her efforts at weight loss through caloric restriction and a regular exercise program. She will return in 1 year or when clinically indicated. Assessment & Plan (09/04/2024 3:03 PM CRANE HOIST OR LIFT OPERATOR): Stable and likely improved in the face of weight loss. I will try to obtain the imaging studies from the episode of diverticulitis to try and document any changes in the appearance of the liver. Otherwise, I encouraged her to continue her efforts at weight loss through caloric restriction and a regular exercise program. She will return in 1 year or when clinically indicated. Assessment & Plan (09/27/2023 5:11 PM CRANE HOIST OR LIFT OPERATOR): We again discussed her Nonalcoholic fatty liver disease from increased hepatic fat, i.e., inadequate metabolism of fat delivered to the liver. Over time this inflammation can lead to scar tissue or cirrhosis of the liver in approximately 30% of cases. Patients with cirrhosis are at risk for developing complications of portal hypertension, liver failure, , liver cancer, and/or the need for a liver transplant. The most effective treatment of fatty liver is weight loss through diet and exercise. - Recommend increasing exercise. Aerobic exercise for 4 hours a week can accelerate fat metabolism and lead to improvement of liver tests. Weight loss of 5-10% of the current body weight usually leads to improvement in liver tests, liver inflammation, and a decrease in hepatic fibrosis. - She will continue to work on losing weight with diet and exercise. She will talk with he PCP regarding medication to help with weight loss such as GLP1 agonist though may be limited due to insurance. - She will get labs with PCP in addition to routine DM and cholesterol eval per PCP. Assessment & Plan (09/11/2022 9:49 AM CRANE HOIST OR LIFT OPERATOR): We discussed the cause of increased hepatic fat, i.e., inadequate metabolism of fat delivered to the liver. When associated with elevated transaminases, this is non-alcoholic steatohepatitis. This inflammation can lead to scar tissue or cirrhosis of the liver in approximately 30% of cases. Patients with cirrhosis are at risk for developing complications of portal hypertension, liver failure, , liver cancer, and/or the need for a liver transplant. Fat in the absence of elevated transaminases is non-alcoholic fatty liver disease. Routinely, this is not associated with inflammation or progressive hepatic fibrosis. The most effective treatment of fatty liver is weight loss, ideally achieved through a combination of caloric restriction and exercise. Aerobic exercise for 4 hours a week can accelerate fat metabolism and lead to improvement of liver tests. Weight loss of 5-10% of the current body weight usually leads to improvement in liver tests, liver inflammation, and a decrease in hepatic fibrosis. - She has not been able to lose weight. We had extensive discussion today about the risk to liver disease progression given her weight and NAFLD. She will try to lose 10-15% body weight and exercise. Her brother was diagnosed with [id number] lung disease MZ phenotype. Pt is planning to get genetic test from [facility], but we discussed as she reported normal levels of [id number] in past less likely to affect liver with MZ phenotype. - She will get labs with PCP 09/12 - can check CMP. Also routine DM eval, etc per PCP. Assessment & Plan (08/22/2021 2:07 PM CDT): Patient follows up for NAFLD. She reports stable weight over the past year. We discussed the importance of weight loss through diet and exercise. This is the most effective means of treating NAFLD. Her weight loss goal over the next year is 10-15#. We will see her in one year to follow up on her weight and NAFLD. She should continue to avoid heavy EtOH use. Assessment & Plan (08/19/2020 8:50 PM CDT): Stable with normal liver biochemistries in June,. I stressed the importance of ongoing efforts at weight loss as the most effective means of decreasing hepatic fat. The normal liver biochemistries are encouraging and suggest minimal hepatic inflammation. This should decrease the risk of progressive hepatic fibrosis. I gave her a weight loss goal of 10 lb over the course of the next year, ideally achieved through caloric restriction and an exercise program. She will return in 1 year or when clinically indicated. Assessment & Plan (10/02/2018 8:45 AM CRANE HOIST OR LIFT OPERATOR): Based on hepatic steatosis on imaging studies in association with elevated liver biochemistries. We discussed the cause of increased hepatic fat, i.e., inadequate metabolism of fat delivered to the liver. When associated with elevated transaminases, this is non-alcoholic steatohepatitis. This inflammation can lead to scar tissue or cirrhosis of the liver in approximately 30% of cases. Patients with cirrhosis are at risk for developing complications of portal hypertension, liver failure, , liver cancer, and/or the need for a liver transplant. Fat in the absence of elevated transaminases is non-alcoholic fatty liver disease. Routinely, this is not associated with inflammation or progressive hepatic fibrosis. The most effective treatment of fatty liver is weight loss, ideally achieved through a combination of caloric restriction and exercise. Aerobic exercise for 4 hours a week can accelerate fat metabolism and lead to improvement of liver tests. Weight loss of 5-10% of the current body weight usually leads to improvement in liver tests, liver inflammation, and a decrease in hepatic fibrosis. I have asked her to return in 1 year or when clinically indicated. Thyrotoxicosis with thyrotoxic crisis 05/12/2014 Overview (02/02/2017): THYROTOX NOS NO CRISIS Depression 03/14/2014 Overview (01/31/2017): DEPRESSIVE DISORDER NEC Hypertensive retinopathy 03/14/2014 Overview (02/01/2017): Hypertensive retinopathy Rosacea 03/14/2014 Overview (02/01/2017): ROSACEA Type 2 diabetes mellitus 03/14/2014 Overview (02/01/2017): DMII WO CMP UNCNTRLD Hypertension 03/14/2014 Overview (02/01/2017): HYPERTENSION NOS Obesity, diabetes, and hypertension syndrome Overview (02/01/2017): DYSMETABOLIC SYNDROME X Assessment & Plan (09/11/2022 9:50 AM CRANE HOIST OR LIFT OPERATOR): We discussed weight loss efforts as discussed above. Pt agreed. Impaired glucose tolerance 03/14/2014 Overview (02/02/2017): Prediabetes Hypothyroidism 03/14/2014 Overview (02/02/2017): HYPOTHYROIDISM NOS Encounters Date Type Department Care Team Description 09/07/2025 10:40 AM CRANE HOIST OR LIFT OPERATOR Office Visit [facility] [address] [place] [address] [place] [address] Titi Barone MD Metabolic dysfunction-associate d steatotic liver disease (MASLD) (Primary Dx) from Last 3 Months Immunizations Immunization Administration Dates Next Due Influenza, Quadrivalent, Spl it, Preservative Free, Intramuscular 09/20/2013 Influenza, Trivalent, IM (MDV) 4,08/08/2011,03/31/2011,08/09 Pneumococcal Polysaccharide PPV23 07/31/2010 Tdap 09/20/2013 Surgical History Surgery Date Site/Laterality Comments CARPAL TUNNEL RELEASE 10/29/2010 - 10/28/2011 Carpal tunnel release OTHER SURGICAL HISTORY 10/29/2010 - 10/28/2011 carpal tunnel syndrome: carpal tunnel release OTHER SURGICAL HISTORY Endometriosis: endometrial ablation COLONOSCOPY Medical History Medical History Date Comments Hypertension Hypertension Disorder of thyroid Thyroid dise ase Hx Other Medical carpal tunnel s yndrome Hx Other Medical rosea Endometritis Endometriosis Family History Medical History Relation Name Comments Hypertension Father Hypertension; Diabetes type II Mother Diabetes -T ype II; Hypertension Mother Hypertension; Relation Name Status Comments Father Mother Social History Tobacco Use Types Packs/Day Years Used Date Smoking Tobacco: Never Smokeless Tobacco: Never Tobacco Cessation:Counseling Given: Not Answered Alcohol Use Standard Drinks/Week Comments No 0 (1 standard drink = 0.6 oz pur e alcohol) Comments Unknown Sex and Gender Information Value Date Recorded Sex Assigned at Not on file Legal Sex Female 1:33 PM CRANE HOIST OR LIFT OPERATOR Gender Identity Not on file Sexual Orientation Not on file Occupation 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 Start 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 Not on file Not on file Not on fi le Last Filed Vital Signs Vital Sign Reading Time Taken Comments Blood Pressure 129/78 09/07/2025 11:04 AM CRANE HOIST OR LIFT OPERATOR Pulse 76 09/07/2025 11:04 AM CRANE HOIST OR LIFT OPERATOR Temperature 36.3 C (97.3 F) 09/07/2025 11:04 AM CRANE HOIST OR LIFT OPERATOR Respiratory Rate - - Oxygen Saturation 97% 09/07/2025 11:04 AM CRANE HOIST OR LIFT OPERATOR Inhaled Oxygen Concentration - - Weight 83 kg (183 lb) 09/07/2025 11:04 AM CRANE HOIST OR LIFT OPERATOR Height 149.9 cm (4' 11) 09/07/2025 11:04 AM CRANE HOIST OR LIFT OPERATOR Body Mass Index 36.96 09/07/2025 11:04 AM CRANE HOIST OR LIFT OPERATOR Plan of Treatment Health Maintenance Due Date Last Done Comments Albumin Creatinine Ratio, Urine 1961 Cervical Cancer Screening 1961 Depression Screening 1961 Hemoglobin A1C 1961 Hepatitis C Screening 1961 eGFR 1961 Dilated Eye Exam 01/01/1962 Foot Exam 01/01/1962 Hepatitis B Screening 01/01/1980 Regular Well Visit/Exam 18-64 01/01/1980 Pneumococcal vaccine <65 (2 of 2 - PCV) 07/31/2011 07/31/2010 Lipid Panel 08/10/2015 08/10/2014, 01/21/2013 Breast Cancer Screening-Mammogram 08/23/2016 015, 10/07/2013 DTaP/Tdap/Td Vaccine (2 - Td or Tdap) 09/20/2023 09/20/2013 Colon Cancer Screening-Colonoscopy 09/21/2024 09/21/2014 Covid-19 Vaccine (4 - 2024-2 6 season) 2025 09/20/2021, 02/23/2021, 02/02/2021 Influenza Vaccine (#1) 2025 3, 09/25/2021, 10/27/2020, Additional history exists Colon Cancer Screening-CT Colonography Discontinued 09/21/2014 Colon Cancer Screening-DNA Stool Discontinued 09/21/20 14 Colon Cancer Screening-FIT Discontinued 09/21/2014 Colon Cancer Screening-Sigmoidoscopy Discontinued 09/21/2014 Zoster Vaccine Completed 12/28/2020, 10/27/2020 Procedures Procedure Name Priority Date/Time Associated Diagnosis Comments SCREENING MAMMOGRAM Routine 08/23/2015 1 0:36 AM CDT COLONOSCOPY REPORT 09/21/2014 SERUM LIPID PANEL Routine 08/10/2014 4:2 2 AM CDT from Last 3 Months or Most Recently Relevant to Health Maintenance Results * Screening Mammogram (08/23/2015 10:36 AM CDT) Anatomical Region Laterality Modality Breast N/A Mammography 08/23/2015 10:3 6 AM CDT Narrative 08/23/2015 3:13 PM CDT Acc#: [id number] [facility] 0034 - Screening Mamm W Cory Bi DATE OF EXAM: Aug 23 2015 10:36AM DIAGNOSIS: ENCNTR SCREEN MAMMOGRAM FOR MALIGNANT NE CLINICAL HISTORY: SCREENING RESULT: EXAMINATION: BILATERAL SCREENING DIGITAL MAMMOGRAPHY WITH CAD AND TOMOSYNTHESIS History: Routine screening Comparison: 10/07/2013. Findings: Craniocaudal and mediolateral oblique views of both breasts were obtained utilizing full field digital mammography. The breasts are heterogenously dense that could obscure small masses. Benign appearing calcifications are seen in both breasts. There is no suspicious dominant mass, clustered microcalcification or architectural distortion. This examination has been subjected to R2/CAD analysis. IMPRESSION: 1. BIRADS category 2, benign. 2. Annual screening mammography, monthly self breast examinations and yearly breast examination by a physician are recommended. TECHNOLOGIST: CARMENCITA GIRON, TECHNOLOGIST MEDICAL IMAGING STORAGE BATTERY CHARGER: [id number] TRANSCRIBE DATE/TIME: Aug 23 2015 1:19P RADIOLOGIST: SHARIFA TURNER M.D. READ ON: Aug 23 2015 1:14P ORDERING DR: VICKIE JONAS ([facility]) Jerson STORAGE BATTERY CHARGER: [id number] TRANSCRIBE DATE/TIME: Aug 23 2015 1:19P RADIOLOGIST: SHARIFA TURNER M.D. READ ON: Aug 23 2015 1:14P ORDERING DR: VICKIE PhillipsFRANCISCAN HEALTHLalo Arthur THIS DOCUMENT HAS BEEN ELECTRONICALLY SIGNED BY: SHARIFA TURNER M.D. ON: Aug 23 2015 3:13P Attending: SUMI PhillipsFRANCISCAN HEALTHVICKIE May Requesting: SUMI ([facility])VICKIE Requesting Attending Attending ID: [id number] Requesting ID: [id number] Report To 1 ID: Report To 1 Name: , Report To 1 FAX: -- Report To 2 ID: Report To 2 Name: , Report To 2 FAX: -- NextGen Order #: Procedure Note Provider, MD Mahin - 02/22/2017 Acc#: [id number] [facility] 0034 - Screening Mamm W Cory Bi DATE OF EXAM: Aug 23 2015 10:36AM DIAGNOSIS: ENCNTR SCREEN MAMMOGRAM FOR MALIGNANT NE CLINICAL HISTORY: SCREENING RESULT: EXAMINATION: BILATERAL SCREENING DIGITAL MAMMOGRAPHY WITH CAD AND TOMOSYNTHESIS History: Routine screening Comparison: 10/07/2013. Findings: Craniocaudal and mediolateral oblique views of both breasts were obtained utilizing full field digital mammography. The breasts are heterogenously dense that could obscure small masses. Benign appearing calcifications are seen in both breasts. There is no suspicious dominant mass, clustered microcalcification or architectural distortion. This examination has been subjected to R2/CAD analysis. IMPRESSION: 1. BIRADS category 2, benign. 2. Annual screening mammography, monthly self breast examinations and yearly breast examination by a physician are recommended. TECHNOLOGIST: CARMENCITA GIRON, TECHNOLOGIST MEDICAL IMAGING STORAGE BATTERY CHARGER: LB3 TRANSCRIBE DATE/TIME: Aug 23 2015 1:19P RADIOLOGIST: SHARIFA TURNER M.D. READ ON: Aug 23 2015 1:14P ORDERING DR: VICKIE PhillipsFRANCISCAN HEALTHLalo Arthur STORAGE BATTERY CHARGER: [id number] TRANSCRIBE DATE/TIME: Aug 23 2015 1:19P RADIOLOGIST: SHARIFA TURNER M.D. READ ON: Aug 23 2015 1:14P ORDERING DR: VICKIE [facility]FR[facility]) M.D. THIS DOCUMENT HAS BEEN ELECTRONICALLY SIGNED BY: SHARIFA TURNER M.D. ON: Aug 23 2015 3:13P Attending: SUMI ([facility])VICKIE Requesting: SUMI ([facility])VICKIE Requesting Attending Attending ID: [id number] Requesting ID: [id number] Report To 1 ID: Report To 1 Name: , Report To 1 FAX: -- Report To 2 ID: Report To 2 Name: , Report To 2 FAX: -- NextGen Order #: Historical Provider IMSanam MAMMO PROCEDURES Nuria l Result * COLONOSCOPY REPORT (09/21/2014) Anatomical Region Laterality Modality Other Narrative 09/21/2014 Ordered by an unspecified provider. Historical Provider GI PROCEDURE ORDERABLES F inal Result * (ABNORMAL) Serum lipid panel (08/10/2014 4:22 AM CDT) Cholesterol 190 125 - 200 mg/dl HISTORICAL RESULTS HDL 45(L) > OR = 46 mg/dl HISTORICAL RESULTS Triglycerides 75 <150 mg/dl HISTORICAL RESULTS LDL 130(H) <130 mg/dl HISTORICAL RESULTS Comment: Desirable range <100 mg/dL for patients with CHD or diabetes and <70 mg/dL for diabetic patients with known heart disease. Chol/HDL ratio 4.2 < OR = 5.0 calc HISTORICAL RESULTS Non-HDL cholesterol, calculated 145 mg/dl HISTORICAL RESULTS Comment: Target for non-HDL cholesterol is 30 mg/dL higher than LDL cholesterol target. Serum 08/10/2014 4:22 AM CDT Narrative HISTORICAL RESULTS - 08/13/2014 11:00 PM CDT Test performed at [facility] [id number] [place] [id number] Director: JUWAN SHER DO,MPH Historical Provider LAB BLOOD ORDERABLES Nuria l Result HISTORICAL RESULTS from Last 3 Months or Most Recently Relevant to Health Maintenance Insurance [employer] OPEN ACCESS Care Teams Air Brush Decorator Relationship Specialty Start Date End Date Mariusz Tolbert MD PCP - General Family Medicine 07/12/18
--- OUTSIDE RECORDS SUMMARY | 2025-09-16 12:10 | XMS_ITS | Continuity of Care Document ---
Author Organization [facility] [place] Address [address] [place] [address] [place] [address] Care Team Providers Care Php Consultant Name Role Phone BA HARRISON Primary Care Provider [phone] Assessment Encounter Date Assessment Date Assessment LastModified by Organization Details LastModified Time 09/08/2025 09/08/2025 Annual gynecological exam performed. [email or web address] Not available 09/08/2025 16:39:42 Plan of Treatment Reminders Order Date Submit Date Provider Last Modified By Organization Details Last Modified Time Details Appointments VULVAR LESION REMOVAL 2024 09:30A Chad LEI MD Not available Not available Not available Lab pap, IG + HR HPV - HPV regardles s but if HPV is positive need subtyping 16,18/45 2024 025 [facility] (Lab), [address], [place], [address], 09/11/2025 15:22:49 Referral None recorded. Procedures None recorded. Surgeries None recorded. Imaging DEXA, axial skeleton + vertebral fracture assessmen t 2024 025 [facility], [address], [place], [address], 09/15/2025 04:02:32 Medication Orders None recorded. Patient TargetsNo targets recorded. Patient InstructionsNo instructions recorded. Reason for Referral None Reported. Results Created Date Observation Date Name Description Value Unit Range Abnormal Flag Note LastModifiedBy Organization Detail LastModifiedTime 09/08/2009/08/2025 IMAGE GUIDE D PAP AND HPV REGAR DLESS image guided Pap, HPV regardless of Pap result SEE RESULT S BELOW CASE REPOR T: Cytol ogy Gynec ologi robbie Repor t Case: [id number] Autho dalia frank Provi toribio: Reena Goldberg, KENNETH Reich cted: 09/08 1027 Order ing Locat ion: [place] Path[facility] Recei ken: 09/09 0807 First Scree n: Fouzia Herrmann, CT Speci men: Valery flowers Pap - Image d, Cervi x STATE MENT OF ADEQU ACY: Satis facto ry for evalu ation Trans forma tion zone compo nent absen t ----- ----- ----- ----- ----- ----- ----- ----- ----- ----- ----- ----- ----- ----- ----- ----- ----- ---- FINAL DIAGN OSIS: Negat luis antonio for Intra epith elial Lesio n or Maggie araujo (NIL) . Elect rafael sandoval by Fouzia Herrmann, CT on 09/11 at 1418 [employer] ----- ----- ----- ----- ----- ----- ----- ----- ----- ----- ----- ----- ----- ----- ----- ----- ----- ---- HPV RESUL TS: HPV mRNA E6/E7 : No HPV mRNA Detec mich NOTE: This high risk HPV mRNA assay detec ts fourt een high- risk HPV types (16, 18, 31, 33, 35, 39, 45, 51, 52, 56, 58, 59, 66, 68) witho ut diffe renti ation . COMME NT: This speci men was revie wed by a Cytot echno logis t and/o r Patho logis t (as indic ated in this repor t) after evalu ation using the Thinp rep Imagi ng Syste m. CLINI ROBBIE INFOR MATIO N: Menst rual Statu s: LMP (if appli cable ): Clini robbie Histo ry/Pr eviou s Pap: Type of Neopl katerine (if appli cable ): Signi fican t Clini robbie Findi ngs: Other Histo ry: Hormo frances (if appli cable ): PAP EDUCA SANDRINE L NOTE: The Pap Test is a scree lionel test with an inher ent false negat luis antonio rate. Liqui d-bas ed sampl ing may decre ase, but will not elimi michael, false negat luis antonio resul ts. A negat luis antonio resul t does not precl ude the prese nce and/o r devel opmen t of disea se, since the prese nce of abnor mal cells in the sampl e depen ds on the locat ion of the lesio n and sampl ing techn ique. Magdiel nued regul ar scree lionel is the best metho d of cance r preve ntion . If repor mich cytol ogic findi ng do not corre late with physi robbie and/o r histo rical findi ngs, furth er inves tigat ion is recom jorden d, as clini jesse person nted. Not Available [facility] (Lab) [address], [place], [address], 09/11/2025 15:22:49 Result Notes None recorded. Procedures Surgical History Date Name Laterality Status Provider Name and Address Organization Details Recorded Time 02/20/20 24 Vulvar Biopsy completed DAVID Pena [address], [place], [address], [place] [facility] 02/20/2024 15:17:24 11/22/19 24 Date of Last Pap Smear completed Herlinda Hernández [facility] 02/18/2024 12:23:27 08/12/20 23 Date of Last Mammogram completed Jessica Ramey [facility] 11/22/2023 15:11:18 04/07/20 23 completed Jessica [facility] 11/22/2023 15:11:18 04/07/20 23 Date of Last Colonoscopy completed [facility] 11/22/2023 15:11:18 10/29/19 11 Carpal tunnel surgery completed [facility] 11/22/2023 15:25:45 Endometrial Ablation completed [facility] 11/22/2023 15:11:35 Colonoscopy completed [facility] 11/22/2023 15:11:35 Imaging Results None recorded. Procedure Notes None recorded. Medical Equipment None Reported. Allergies Allergen ID Allergen Name Allergen Category Reaction Reaction Severity Criticality Documentation Date Start Date Code Code System Note Provider Name and Address Organization Details Recorded Time 14225 indometha mairbell medicatio n vomiting moderate Not available 11/22/2023 5781 RxNorm Jessica Swayne [facility], [facility] 4 15:11:00 91422 azelastin e medicatio n other severe Not available 11/22/2023 29321 RxNorm Jessica Swayne [facility], [facility] 4 15:11:00 40298 Bactrim medicatio n swelling moderate Not available 11/22/2023 85022 9 RxNorm Jessica Swayne [facility], [facility] 4 15:11:00 85080 Claritin medicatio n dry mouth severe Not available 11/22/2023 62410 6 RxNorm Jessica Swayne [facility], [facility] 4 15:11:00 36641 nitrofura ntoin medicatio n Not available Not available Not available 11/22/2023 7454 RxNorm Reena Goldberg KENNETH [address], [place], [address] , [facility] 4 15:13:26 37383 olive oil food,medi cation Not available Not available Not available 09/03/2025 76103 50 RxNorm Velia Chavis [facility], [facility] 5 10:00:40 Medications Name Sig Start Date Stop Date Status Note LastModified by Organization Details LastModified Time prednisone 10 mg tablet TAKE 3 TABLETS BY MOUTH ONCE DAILY 02/17 completed Not Available Not Available Not Available citalopram 40 mg tablet TAKE 1 TABLET BY MOUTH ONCE DAILY active Not Available Not Available No t Available metronidazo le 0.75 % (37.5 mg/5 gram) vaginal gel INSERT 1 APPLICATO RFUL VAGINALLY ONCE DAILY AT BEDTIME FOR 5 DAYS 09/08 completed Not Available Not Available Not Available valacyclovi r 500 mg tablet TAKE 1 TABLET BY MOUTH ONCE DAILY 02/17 completed Not Available Not Available Not Available triamcinolo ne acetonide 0.1 % topical cream APPLY TWICE DAILY TOPICALLY TO RIGHT UPPER CHEST LESION active Not Available Not Available No t Available levothyroxi ne 75 mcg tablet TAKE 1 TABLET BY MOUTH ONCE DAILY active Not Available Not Available No t Available dicyclomine 20 mg tablet TAKE 1 TABLET BY MOUTH 4 TIMES DAILY NEEDED FOR ABDOMINAL PAIN OR DISCOMFOR T active Not Available Not Available No t Available clobetasol 0.05 % topical ointment APPLY A THIN LAYER TOPICALLY TO AFFECTED AREA ONCE DAILY active Not Available Not Available No t Available estradiol 0.01% (0.1 mg/gram) vaginal cream Apply 1g to the vulva and vagina at bedtime 3 times per week 2024 active Not Available Not Available Not Avai lable lisinopril 40 mg tablet TAKE 1 TABLET BY MOUTH ONCE DAILY active Not Available Not Available No t Available ondansetron 4 mg disintegrat ing tablet DISSOLVE 1 TABLET IN MOUTH EVERY 8 HOURS NEEDED FOR NAUSEA AND VOMITING active Not Available Not Available No t Available dicyclomine 10 mg capsule TAKE 1 CAPSULE BY MOUTH THREE TIMES DAILY NEEDED FOR ABDOMINAL PAIN FOR 2 WEEKS active Not Available Not Available No t Available amoxicillin 875 mg-potassiu m clavulanate 125 mg tablet TAKE 1 TABLET BY MOUTH TWICE DAILY FOR 10 DAYS 09/02 completed Not Available Not Available Not Available modafinil 100 mg tablet TAKE 1 TABLET BY MOUTH IN THE MORNING active Not Available Not Available No t Available Vitals Date Recorded Body height Body mass index (BMI) Body weight Systolic And Diastolic Provider Name and Address Organization Details Last Updated DateTime 09/08/2025 149.86 cm 37.8 kg/m2 23778.77 g 126/77 mm[Hg] Lizbeth Christensen [facility] 09/08/2025 09:48:56 Social History Question Answer Notes LastModified by Organizat ion Details LastModified Time Tobacco Smoking Status Never Smoker Herlinda Hernández greg, [facility] 02/18/2024 12:23:41 Do You Have An Advance Directive? No [email or web address] Information n ot available 09/03/2025 How Many Years Have You Consumed Alcohol? 40 Information not available 11/22/2023 Are You Blind Or Do You Have Difficulty Seeing? No Information n ot available 11/22/2023 What Is Your Level Of Caffeine Consumption? Moderate Information not available 11/22/2023 How Much Tobacco Do You Chew? None [email or web address] Information not available 09/08/2025 In The 14 Days Before Symptom Onset, Have You Had Close Contact With A Laboratory-confirm ed COVID-19 While That Case Was Ill? No Information n ot available 11/22/2023 In The 14 Days Before Symptom Onset, Have You Had Close Contact With A Person Who Is Under Investigation For COVID-19 While That Person Was Ill? No Information not available 11/22/2023 Have You Been To An Area Known To Be High Risk For COVID-19? No Information not available 11/22/2023 Are You Deaf Or Do You Have Serious Difficulty Hearing? No Information not available 11/22/2023 What Type Of Diet Are You Following? DIABETIC Information n ot available 11/22/2023 What Is The Highest Grade Or Level Of School You Have Completed Or The Highest Degree You Have Received? [id number] Information not available 11/22/2023 Are There Any Guns Present In Your Home? Yes Information not available 11/22/2023 Do You Use Protection During Sex? No Information not available 11/22/2023 Do You Use Your Seat Belt Or Car Seat Routinely? Yes Information not available 11/22/2023 Do You Have Smoke And Carbon Monoxide Detectors In Your Home? Yes Information not available 11/22/2023 How Much Tobacco Do You Smoke? No Information not available 11/22/2023 Do You Use Sunscreen Routinely? Yes Information not available 11/22/2023 Have You Used IV Drugs? No Information not available 11/22/2023 Sex: Unknown Functional Status Question Answer Note LastModified by Organizat ion Details LastModified Time Do you use any illicit or recreational drugs? No Information not available 11/22/2023 What is your level of alcohol consumption? Occasional Information not available 11/22/2023 Are you able to walk independently without assistance or assistive devices? 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 Occasional Information not available 11/22/2023 Mental Status Question Answer Note LastModified by Organization D etails LastModified Time Do you feel stressed (tense, restless, nervous, or anxious, or unable to sleep at night)? [id number] Information not available 11/22/2023 Family History Relationship Description Onset Age of this Age Resolved Age Notes LastModified by Organization Details LastModified Time Mother Diabetes mellitus [email or web address] Not available 2023 15:11:05 Maternal Grandmother Diabetes mellitus [email or web address] Not available 2023 15:11:05 Brother Diabetes mellitus [email or web address] Not available 2023 15:11:05 Medical History Condition Response Allergies (Food, seasonal, environmental ) N Other Y Breast Cancer N Drug/Latex Allergies/Reactions N Blood Transfusion N Dermatologic Disorders N Lung Disease N Defects or Inherited Disease N Breast Problem N Gestational Diabetes N Hematologic disorders N Anesthesia Complications N History of STI Y Deep Vein Thrombosis N Polycystic ovary syndrome N Anxiety Disorder Y Autoimmune disease N Arthritis N Infertility N Polyps N Acid Reflux (GERD) N History of abnormal pap N Cancer N Stroke N Varicosities N Neurologic/Epilepsy N Endometriosis N High Cholesterol N Headaches N Fibromyalgia N Kidney Disease N Heart Problems N Kidney or Bladder Problems N Thyroid Problems Y GI Problems N Eating Disorder N Anemia N Art (IVF or FET) N Psychiatric Illness N Ovarian Cancer N Diabetes Y Pulmonary (TB, Asthma) N Hepatitis/Liver Disease N No Past Medical History N Eczema N Urinary Tract Infection N Abuse/Domestic Violence N Asthma N Trauma/Violence N Depression/ depression N Heart Disease N Pre-Eclampsia N Hypertension Y Osteoporosis N Thrombophilias N Gynecological History Statement/Question Response Date of Last Mammogram 08/12/2023 Date of LMP 10/17/2011 On BCP's at Conception? N N STIs/STDs N Current Control Method Ablation Age at First Child 32 If Post Menopausal, Age at Menopause 50 Date of Last Colonoscopy 04/07/2023 Frequency of Cycle (Q days) 29 Sexually Active? Y Age of first menstrual cycle 13 Date of Last Pap Smear 11/22/2023 Sexual Problems? Y Desired Control Method None LMP Approximate 04/07/2023 N Obstetrics History GPAL:G 2 P 2 0 0 2 Type Value Full Term 2 Living 2 Total 2 Past Encounters Encounter ID Performer Location Encounter Start Date Encounter Closed Date Diagnosis/Indication Diagnosis SNOMED-CT Code Diagnosis ICD10 Code Diagnosis IMO Codes Diagnosis Note [id number] DAVID Pena [place] [address] [address] 09/03/2025 09:44:45 09/03/2025 15:58:27 Screening mammography 59466678 Z12.31 [id number] order for screening mammogram given Vulval irritation 914092 003 N90.89 9932205 continue applying vaginal estrogen cream to the vulva and vagina 3 times per weekveg based moisturize r routine reviewed as wellavoid any irritantsv aginitis panel sent to r/o infectiono ption of vulvar biopsy of new area of irritation scheduled to RTC for MD consult/po ssible biopsy Time spent in visit is a total of 25 mins with at least 50% of visit consisting of counseling and review of plan of care. Atrophic vulva 070138731 N90.5 1575557 Pain in fe male genitalia on intercourse 64188661 N94.10 7432412 [id number] DAVID Pena [place] [address] [address] 09/08/2025 09:38:17 09/08/2025 16:45:39 Gynecologic examination 91655224 Z01.212 [id number] WWEpostmen opausalPap - done todaySTI screen - declinedMa mmogram - UTDColon cancer screening - UTDDexa - order givenRouti ne labs - UTD/PCPRTC in 1 yr or sooner if needed Do monthly self breast exams.It is advised to get annual flu shot in the fall and she could obtain at local pharmacy. If you haven't received the Tdap vaccine in the last 10 years you should obtain one as well.Have mammogram yearly, bone density every 2-3 years and stay up to date on colon cancer screening. Engage in regular exercise. Avoid tobacco and illicit drugs. This lifestyle behavior pattern will lead to less health conditions and longer life span. If BMI greater than 25 dietary consult advised.Qu estions have been answered. Postmenopausal state 764 94779 Z78.0 246050 Vulval irritation 063904 003 N90.89 5971400 continue applying vaginal estrogen cream to the vulva and vagina 3 times per weekveg based moisturize r routine reviewed as wellavoid any irritantss cheduled to RTC for MD consult/po ssible biopsy if needed Health Concerns Section Related Observation LastModified by Organization Detai ls LastModified Time None Recorded Concern Status LastModified by Organization Details LastModified Time None Recorded Payers Encounter Date Sequence Insurance Name Policy Number Policy Matos Covered Member ID Matos Member ID Guarantor Name 09/08/2025 1 [employer] (PPO) Cristhian Donaldson [id number] Cristhian Donaldson Notes Date Note Type Note Provider Name and Address Organization Details Recorded Time 5 text/html 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 For vaginal bleeding, patient reportshistory of menopause having occurredandno history of post menopausal bleeding. For urinary symptoms, patient reportsno hematuria,no incontinence,no nocturia, andno urinary frequency. For vulva, patient reportsno genital lesionandno vulvar atrophy. For vagina, patient reportsnormal vaginal dischargeandno vaginal atrophy.Breast symptomsFor breast, patient reportsno breast lump,no nipple discharge, andno breast pain.Psychological symptomsFor sexual complaints, patient reportsno sexual complaints. For psychological symptoms, patient reportsno depressionandno anxiety.Preventative measuresFor preventive measures, patient reportsencourage regular mammograms starting age 40,encourage self breast examination,encourage regular exercise, andencourage no tobacco use.64yo postmenopausal femalewwelast pap 2023 wnlmammogram UTDcolonoscopy UTDneeds dexa order she has been experiencing vulvar irritation/itchingshe had a vulvar biopsy in 2023 for similar symptoms : pathology - epidermal inclusion cyst.She has been using vaginal estradiol cream 2-3 times per wk along with clobetasol as needed. Recently started using the estradiol cream on the vulva as well which she has noticed some improvement with. She goes to [facility]PT which has helped with pain with IC.on testosterone cream and DHEA cream from another providerstill experiencing dryness/itching/irritatio ndecreased libidored bump on vulva that itches, noticed 1-2 wks agoshe is scheduled for MD consult/possible vulvar biopsy with Dr. Lei this month DAVID Pena [address], [place], [address], [place] [facility] 09/08/2025 16:44:57 OBGyn Episode No OBEpisode recorded.
--- OUTSIDE RECORDS SUMMARY | 2025-09-16 12:11 | XMS_ITS | Data Portability ---
Author Organization [facility] [place] Address [address] [place] [address] Care Team Providers Care Soakers Supervisor Name Role Phone BA HARRISON Primary Care Provider Assessment Encounter Date Assessment Date Assessment LastModified by Organization Details LastModified Time 11/22/2023 11/22/2023 Annual gynecological exam performed. Patient will come back in a year unless there are new symptoms. [email or web address] Not available 11/22/2023 15:17:36 09/08/2025 09/08/2025 Annual gynecological exam performed. [email or web address] Not available 09/08/2025 16:39:42 Plan of Treatment Reminders Order Date Submit Date Provider Last Modified By Organization Details Last Modified Time Details Appointments VULVAR LESION REMOVAL 2024 09:30A Chad LEI MD Not available Not available Not available Lab pap, IG + HR HPV - HPV regardles s but if HPV is positive need subtyping 16,18/45 2024 025 [facility] (Lab), [address], [place], [address], 09/11/2025 15:22:49 surgical pathology study - vulvar biopsy 2023 024 [facility] (Lab), [address], [place], [address], 02/21/2024 13:51:28 Referral None recorded. Procedures None recorded. Surgeries None recorded. Imaging DEXA, axial skeleton + vertebral fracture assessmen t 2024 025 [facility], [address], [place], [address], 09/15/2025 04:02:32 MAMMO, screening , digital, bilateral 2024 [facility], [address], [address], [place], [address], 09/10/2025 04:11:23 Medication Orders estradiol 0.01% (0.1 mg/gram) vaginal cream 2024 025 [facility], [address], [place], [address], 09/03/2025 15:15:47 estradiol 0.01% (0.1 mg/gram) vaginal cream 2023 024 [facility], [address], [place], [address], 02/18/2024 16:24:10 estradiol 0.01% (0.1 mg/gram) vaginal cream 2023 024 [facility], [address], [place], [address], 11/22/2023 15:48:13 Patient TargetsNo targets recorded. Patient Instructions Encounter Date Encounter Id Patient Instructions Last Modified By Organization Details Last Modified Time 02/20/2024 [id number] surgical trays* [email or web address] Not available 12/11/2024 11:42:20 Reason for Referral None Reported. Results Created Date Observation Date Name Description Value Unit Range Abnormal Flag Note LastModifiedBy Organization Detail LastModifiedTime 11/22/1911/22/2023 IMAGE GUIDE D PAP AND HPV REGAR DLESS image guided Pap, HPV regardless of Pap result SEE RESULT S BELOW CASE REPOR T: Cytol ogy Gynec ologi robbie Repor t Case: [id number] Autho dalia g Provi toribio: Reena Goldberg, KENNETH Colle cted: 11/22 1626 Order ing Locat ion: [place] Patho logshanti Recei ken: 11/23 0750 First Scree n: Juanito Newton , CT Rescr een: Jarrod Topete, CT Speci men: Scree lionel Pap - Image d, Cervi x STATE MENT OF ADEQU ACY: Satis facto ry for evalu ation Trans forma tion zone compo nent absen t The absen ce of an endoc ervic al compo nent was confi rmed by an addit ional odilon ner. FINAL DIAGN OSIS: Negat luis antonio for Intra epith elial Lesio n or Maggie araujo (NIL) . Elect rafael camilashanti amos d by Jarrod Topete, CT on 2023 at 2:23 PM ----- ----- ----- ----- ----- ----- ----- [...] as clini jesse person nted. Not Available [facility] (Lab) [address], [place], [address], 11/26/2023 15:26:58 02/18/20 24 02/18/2024 VAGIN ITIS/ VAGIN OSIS, DNA PROBE ara sp. detection, direct probe Negati ve negati ve Not Available [facility] (Lab) [address] [place], [address], 02/19/2024 14:07:38 02/18/20 24 02/18/2024 VAGIN ITIS/ VAGIN OSIS, DNA PROBE gardnerella vag. detection, direct probe Positi ve negati ve abnormal Not Available [facility] (Lab) [address], [place], [address], 02/19/2024 14:07:38 02/18/20 24 02/18/2024 VAGIN ITIS/ VAGIN OSIS, DNA PROBE trichomonas vag. detection, direct probe Negati ve negati ve Not Available [facility] (Lab) [address] [place], [address], 02/19/2024 14:07:38 02/20/20 24 02/20/2024 SURGI ROBBIE PATHO LOGY surgical pathology SEE RESULT S BELOW CASE REPOR T: Surgi robbie Patho logy Repor t Case: [id number] Autho rizin g Provi toribio: Reena Goldberg NP Colle cted: 02/19 1517 Order ing Locat ion: [place] Patho logy Recei ken: 02/20 0232 Patho logis t: Rodolfo Wallace MD Speci men: Vulva , Vulva r lesio n FINAL DIAGN OSIS: Vulva , biops y: -Epid ermal inclu tye cyst. Elect rafael trinidad d by Rodolfo Wallace MD on 2023 at 12:48 PM ----- ----- ----- ----- ----- ----- ----- ----- ----- ----- ----- ----- ----- ----- ----- ----- ----- ---- CLINI ROBBIE INFOR MATIO N: N90.8 [id number] MICRO SCOPI C DESCR IPTIO N: A micro scopi c exami natio n was perfo rmed. GROSS DESCR IPTIO N: A. Vulva . The speci men is label ed with the patie nt's name, demog raphi cs and vulv a. Recei ken in forma michael is a 0.4 cm piece of white -johnson tissu e. The entir e speci men is submi tted in one casse tte. Gross ed by Zeus andersen Not Available [facility] (Lab) [address], [place], [address], 02/21/2024 13:51:28 09/08/20 25 09/08/2025 IMAGE GUIDE D PAP AND HPV REGAR DLESS image guided Pap, HPV regardless of Pap result SEE RESULT S BELOW CASE REPOR T: Cytol ogy Gynec ologi robbie Repor t Case: [id number] Autho dalia frank Provi toribio: Reena Goldberg NP Colle cted: 09/08 1027 Order ing Locat ion: [place] Patho logy Recei ken: 09/09 0807 First Scree n: Fouzia Herrmann, CT Speci men: Odilon flowers Pap - Image d, Cervi x STATE MENT OF ADEQU ACY: Satis facto ry for evalu ation Trans forma tion zone compo nent absen t ----- ----- ----- ----- ----- ----- ----- ----- ----- ----- ----- ----- ----- ----- ----- ----- ----- ---- FINAL DIAGN OSIS: Negat luis antonio for Intra epith elial José Luis liriano or Maggie araujo ([facility]) . 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 Not Available [facility] (Lab) [address], [place], [address], 09/11/2025 15:22:49 Result Notes None recorded. Procedures Surgical History Date Name Laterality Status Provider Name and Address Organization Details Recorded Time 02/20/20 24 Vulvar Biopsy completed DAVID Pena [address], [place], [address], [facility] 02/20/2024 15:17:24 11/22/19 24 Date of Last Pap Smear completed Herlinda Hernández [facility] 02/18/2024 12:23:27 08/12/20 23 Date of Last Mammogram completed Jessica Ramey [facility] 11/22/2023 15:11:18 04/07/20 23 completed Jessica Ramey [facility] 11/22/2023 15:11:18 04/07/20 23 Date of Last Colonoscopy completed Jessica Ramey [facility] 11/22/2023 15:11:18 10/29/19 11 Carpal tunnel surgery completed Jessica [facility] 11/22/2023 15:25:45 Endometrial Ablation completed Jessica [facility] 11/22/2023 15:11:35 Colonoscopy completed [facility] 11/22/2023 15:11:35 Imaging Results None recorded. Procedure Notes None recorded. Medical Equipment None Reported. Allergies Allergen ID Allergen Name Allergen Category Reaction Reaction Severity Criticality Documentation Date Start Date Code Code System Note Provider Name and Address Organization Details Recorded Time 46936 indometha maribell medicatio n vomiting moderate Not available 11/22/2023 5781 RxNorm Jessica Karoline [facility] 4 15:11:00 69493 azelastin e medicatio n other severe Not available 11/22/2023 71764 RxNorm Jessica Chevysudha [facility], [facility] 4 15:11:00 26671 Bactrim medicatio n swelling moderate Not available 11/22/2023 42508 9 RxNorm Jessica Karoline [facility], [facility] 4 15:11:00 91925 Claritin medicatio n dry mouth severe Not available 11/22/2023 67739 6 RxNorm Jessica Chevysudha [facility], [facility] 4 15:11:00 21482 nitrofura ntoin medicatio n Not available Not available Not available 11/22/2023 7454 RxNorm Reena Goldberg KENNETH [address], [place], [address] , [facility] 4 15:13:26 58748 olive oil food,medi cation Not available Not available Not available 09/03/2025 26159 50 RxNorm Velia Chavis [facility], [facility] 5 10:00:40 Medications Name Sig Start [...] and Address Organization Details Last Updated DateTime 11/22/2023 149.86 cm 37.9 kg/m2 73689.65 g 143/81 mm[Hg] Jessica Reecesudha [facility] 11/22/2023 15:21:15 Date Recorded Body height Body mass index (BMI) Body weight Systolic And Diastolic Provider Name and Address Organization Details Last Updated DateTime 02/18/2024 149.86 cm 38.6 kg/m2 96596.14 g 123/75 mm[Hg] Herlinda Hernández [facility] 02/18/2024 14:24:28 Date Recorded Body height Body mass index (BMI) Body weight Systolic And Diastolic Provider Name and Address Organization Details Last Updated DateTime 02/20/2024 149.86 cm 38.8 kg/m2 96751.74 g 128/72 mm[Hg] Herlinda Hernández [facility] 02/20/2024 14:52:35 Date Recorded Body height Body mass index (BMI) Body weight Systolic And Diastolic Provider Name and Address Organization Details Last Updated DateTime 09/03/2025 149.86 cm 37.2 kg/m2 33926 g 124/76 mm[Hg] Velia Wilsonshanti [facility] 09/03/2025 10:00:03 Date Recorded Body height Body mass index (BMI) Body weight Systolic And Diastolic Provider Name and Address Organization Details Last Updated DateTime 09/08/2025 149.86 cm 37.8 kg/m2 78148.77 g 126/77 mm[Hg] Lizbethrose Robertsonney [facility] 09/08/2025 09:48:56 Social History Question Answer Notes LastModified by Organizat ion Details LastModified Time Tobacco Smoking Status Never Smoker Herlinda Hernández [facility] 02/18/2024 12:23:41 Do You Have An Advance Directive? No Information n ot available 09/03/2025 How Many Years Have You Consumed Alcohol? 40 Information not available 11/22/2023 Are You Blind Or Do You Have Difficulty Seeing? No Information n ot available 11/22/2023 What Is Your Level Of Caffeine Consumption? Moderate Information not available 11/22/2023 How Much Tobacco Do You Chew? None [email or web address] Information not available 09/08/2025 In The 14 [...] Or The Highest Degree You Have Received? [id number] Information not available 11/22/2023 Are There Any [...] anxious, or unable to sleep at night)? [id number] Information not available 11/22/2023 Family History Relationship Description Onset Age of this Age Resolved Age Notes LastModified by Organization Details LastModified Time Mother Diabetes mellitus [email or web address] Not available 2023 15:11:05 Maternal Grandmother Diabetes mellitus [email or web address] Not available 2023 15:11:05 Brother Diabetes mellitus dswayne Not available 2023 15:11:05 Medical History Condition Response Allergies (Food, seasonal, environmental ) N Other Y Drug/Latex Allergies/Reactions N Breast Cancer N Blood Transfusion N Lung Disease N Dermatologic Disorders N Defects or Inherited Disease N Breast Problem N Gestational Diabetes N Hematologic disorders N Anesthesia Complications N History of STI Y Deep Vein Thrombosis N Polycystic ovary syndrome N Anxiety Disorder Y Autoimmune disease N Arthritis N Polyps N Infertility N History of abnormal pap N Acid Reflux (GERD) N Cancer N Varicosities N Stroke N Neurologic/Epilepsy N Endometriosis N High Cholesterol N Headaches N Fibromyalgia N Kidney Disease N Heart Problems N Thyroid Problems Y Kidney or Bladder Problems N GI Problems N Eating Disorder N Anemia [...] ICD10 Code Diagnosis IMO Codes Diagnosis Note [id number] DAVID Pena [place] [address] [address] 11/22/2023 15:05:47 11/22/2023 16:05:38 Gynecologic examination 51853083 Z01.419 WWEpostmen opausalpap updatedSTI testing declinedma mmogram UTDcolonos copy UTDroutine labs UTD/PCPBP precaution s discussed, encouraged PCP f/u Take Calcium with Vitamin D daily.Do monthly self breast exams.It is advised to get annual flu shot in the fall and she could obtain at [facility] or [facility] clinic. If you haven't received the Tdap vaccine in the last 10 years you should obtain one as well.Have mammogram yearly, bone density every 2-3 years and colonoscop y every 5-10 years depending on findings and history.En maira in daily exercise of low impact aerobic exercise 45-60 minutes 4-5 times weekly. Avoid tobacco and illicit drugs. This lifestyle behavior pattern will lead to less health conditions and longer life span. If BMI greater than 25 dietary consult advised.Qu estions have been answered. Patient appears to understand instructio ns, but if you have any further questions call or respond to this email Vaginal dryness 64917762 N89.8 Discussed options, recommende d vaginal estradiol creamuse nightly x 2 weeks, then 2-3 times per week at bed timerx sent, r/b/a reviewedve g based moisturize r routine discussedv ulvar care guidelines reviewedme d check in 3 months Time spent in visit is a total of 30 mins with at least 50% of visit consisting of counseling and review of plan of care. [id number] DAVID Pena [place] [address] [address] 02/18/2024 14:18:34 02/18/2024 16:31:30 Vaginal dryness 96879016 N89.8 continue vaginal estrogen cream, 3 times per week at bedtimecri sco BID, use as lubricatio n with ICrecommen ded vulvar biopsy - possible LS on examr/b/a reviewed, questions answeredsc heduled to RTC for biopsy Time spent in visit is a total of 22 mins with at least 50% of visit consisting of counseling and review of plan of care. Vulval irritation 732086 003 N90.89 [id number] DAVID Pena [place] [address],[place] [address] 02/20/2024 14:46:46 02/20/2024 15:22:05 Lesion of vulva 041630613 N90.89 r/b of vulvar biopsy discussed and accepted by ptconsent reviewed and signedbiop sy performed (see procedure note)pt tolerated procedure wellprecau tions reviewedwi ll update pt with results when available Vulval irritation 960189 003 N90.89 [id number] DAVID Pena [place] [address],[place] [address] 09/03/2025 09:44:45 09/03/2025 15:58:27 Screening mammography 78298860 Z12.31 5590990 order for screening mammogram given Vulval irritation 389665 003 N90.89 0113467 continue applying vaginal estrogen cream to the [...] review of plan of care. 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 Postmenopausal state 764 73023 Z78.0 472927 Vulval irritation 031048 003 N90.89 0101952 continue applying vaginal estrogen cream to the vulva and vagina 3 times per weekveg based moisturize r routine reviewed as wellavoid any irritantss cheduled to RTC for MD consult/po ssible biopsy if needed Health Concerns Section Related Observation LastModified by Organization Detai ls LastModified Time None Recorded Concern Status LastModified by Organization Details LastModified Time None Recorded Advance Directives Directive N: Payers Insurance Date Sequence Insurance Name Policy Number Policy Matos Covered Member ID Matos Member ID Guarantor Name 11/20/2023 1 [employer] [id number] Cristhian Donaldson [id number] Cristhian Donaldson 03/11/2024 1 [employer] LOCAL 525 FUND (PPO) [id number] Cristhian Donaldson [id number] Cristhian Donaldson 09/15/2025 1 [employer] - [place] - [employer]S LOCAL 421 (PPO) Cristhian Donaldson [id number] Cristhian Donaldson 09/02/2025 1 [employer] [id number] Cristhian Donaldson [id number] Cristhian Donaldson Notes Date Note Type Note Provider Name and Address Organization Details Recorded Time 4 text/html 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 Pain with IC. Has tried OTC replenish with no reliefdenies hx of DVT/PE or breast cancer DAVID Pena [address], [place], [address], [facility] 11/22/2023 15:54:31 4 text/html 63yopresents for f/ustarted vaginal estradiol cream 3 months agousing crisco BIDariks noticed some improvement in dryness, continues to have itching on left outer labia majora DAVID Pena [address], [place], [address], [facility] 02/18/2024 16:24:56 4 text/html 63yopresents for vulvar biopsy DAVID Pena [address], [place], [address], [facility] 02/20/2024 15:19:51 5 text/html 64yoHere today for vulvar lesion and irritation/drynessshe had a vulvar biopsy in 2023 for [...] libidored bump on vulva that itches, noticed a week ago DAVID Pena [address], [place], [address], [facility] 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 Lei this month DAVID Pena [address], [place], [address], [facility] 09/08/2025 16:44:57 OBGyn Episode Ob Episode Information Episode Created Date Number of Fetuses Patient Bloodtype Patient rh Status Prepregnancy Weight lbs Domestic Partner Domestic Partner Phone Father Name Sales Lead Status 11/22/19 24 1 CLOSED Fetus Data First Name Last Name Admitted to NICU Weight (g) Sex Living Outcome Pediatric Complications Fetus ID Race Codes Race Delivery Type F Full Term [id number] Vaginal Delivery Alexander Calculation Initial Alexander Date Initial Exam Date Initial Exam Provider Initial Ultrasound Date Last Menstrual Period Date Ultra Sound Weeks Gestation 0 Eighteen To Twenty Week Alexander Update Ultra Sound Date Fundal Height At Umbil Quickening Date Ultra Sound Latest Weeks Gestation Final Alexander Confirmed By Final Alexander Confirmed Date Final Alexander Date Ultra Sound Latest Days Gestation 0 0 Menstrual History Last Menstrual Date Menses Monthly On Bcp Conception Prior Menses Frequency Hcg Plus Date Menarche Onset Age Delivery Information Delivery Date Delivery Type Labor Anesthesia Weeks Gestation Incision Type Labor Labor Length Hrs Delivered By Post Complications Tubal Sterilization Discharge Date Comments 6 Discharge Information Feeding Method Contraceptive Method Maternal HG B and HCT Levels Ob Episode Information Episode Created Date Number of Fetuses Patient Bloodtype Patient rh Status Prepregnancy Weight lbs Domestic Partner Domestic Partner Phone Father Name Sales Lead Status 11/22/19 24 1 CLOSED Fetus Data First Name Last Name Admitted to NICU Weight (g) Sex Living Outcome Pediatric Complications Fetus ID Race Codes Race Delivery Type F Full Term [id number] Vaginal Delivery Alexander Calculation Initial Alexander Date Initial Exam Date Initial Exam Provider Initial Ultrasound Date Last Menstrual Period Date Ultra Sound Weeks Gestation 0 Eighteen To Twenty Week Alexander Update Ultra Sound Date Fundal Height At Umbil Quickening Date Ultra Sound Latest Weeks Gestation Final Alexander Confirmed By Final Alexander Confirmed Date Final Alexander Date Ultra Sound Latest Days Gestation 0 0 Menstrual History Last Menstrual Date Menses Monthly On Bcp Conception Prior Menses Frequency Hcg Plus Date Menarche Onset Age Delivery Information Delivery Date Delivery Type Labor Anesthesia Weeks Gestation Incision Type Labor Labor Length Hrs Delivered By Post Complications Tubal Sterilization Discharge Date Comments 3 Discharge Information Feeding Method Contraceptive Method Maternal HG B and HCT Levels
--- OUTSIDE RECORDS SUMMARY | 2025-09-16 12:11 | XMS_ITS | Encounter Summary ---
Author Organization [facility] Address [address] [place] [address] Phone Care Team Providers Care Cord Splicer Name Role Phone Mariusz Tolbert MD Primary Care Provider [phone] Encounter Details Date Type Department Care Team (Late st Contact Info) Description 04/03/2024 Orders Only [facility] Scanning, Provider Social History Tobacco Use Types Packs/Day Years Used Date Smoking Tobacco: Never Smokeless Tobacco: Never Alcohol Use Standard Drinks/Week Comments No 0 (1 standard drink = 0.6 oz pur e alcohol) Comments Unknown Sex and Gender Information Value Date Recorded Sex Assigned at Not on file Legal Sex 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 Gender Identity Not on file Sexual Orientation Not on file 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 Start 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 Not on file Not on file Not on fi le documented as of this encounter Plan of Treatment Not on file documented as of this encounter Procedures Procedure Name Priority Date/Time Associated Diagnosis Comments SCAN - RADIOLOGY/IMAGING 04/03/2024 documented in this encounter Results * SCAN - RADIOLOGY/IMAGING (04/03/2024) Anatomical Region Laterality Modality Other us Provider Scanning Final Result documented in this encounter Visit Diagnoses Not on filedocumented in this encounter Care Teams Cord Splicer Relationship Specialty Start Date End Date Mariusz Tolbert MD PCP - General Family Medicine 07/12/18 documented as of this encounter
--- OUTSIDE RECORDS SUMMARY | 2025-09-16 12:11 | XMS_ITS | Clinical Summary ---
Author Organization [facility] Address [address] [place] [address] Phone Care Team Providers Care Creative Assistant Name Role Phone Mariusz Tolbert MD Primary Care Provider [phone] Allergies Active Allergy Reactions Criticality Noted Date Comments Indomethacin Nausea and Vomiting,Abdominal Pain Medium 04/20/2020 Nitrofurantoin Monohyd/M-Cryst Swelling High 04/20/2020 JOINTS SWELL Medications calcium carbonate + vitamin D (CALTRATE+D) 600 mg(1,500mg) -400 unit Tablet Take 1 Tablet by mouth daily. Active citalopram (CeleXA) 40 mg tablet Take 40 mg by mouth daily. 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 Active lisinopriL (PRINIVIL) 40 mg tablet Take 40 mg by mouth daily. Active valACYclovir (VALTREX) 1 gram tablet Take 1,000 mg by mouth 2 times daily as needed. Active HYDROcodone-jody taminophen (NORCO) 5-325 mg tabletIndicatio ns:Hallux rigidus of left foot Take 1 Tablet by mouth every 4 hours as needed for moderate pain. Max Daily Amount: 6 Tablets 28 Tablet 04/23/2020 Active Social History Tobacco Use Types Packs/Day Years Used Date Smoking Tobacco: Never Smokeless Tobacco: Never Alcohol Use Standard Drinks/Week Comments Yes 0 (1 standard drink = 0.6 oz pur e alcohol) Comments No Sex and Gender Information Value Date Recorded Sex Assigned at Not on file Legal Sex Female 2:18 PM CDT Gender Identity Not on file Sexual Orientation Not on file Last Filed Vital Signs Vital Sign Reading Time Taken Comments Blood Pressure 126/69 04/23/2020 9:41 AM CDT Pulse 65 04/23/2020 9:41 AM CDT Temperature 36.7 C (98 F) 04/23/2020 9:41 AM CDT Respiratory Rate 15 04/23/2020 9:41 AM CDT Oxygen Saturation 97% 04/23/2020 9:41 AM CDT Inhaled Oxygen Concentration - - Weight 78.4 kg (172 lb 14.4 oz) 04/23/2020 5:58 AM CDT Height - - Body Mass Index - - Plan of Treatment Health Maintenance Due Date Last Done Comments DIABETES ANNUAL FOOT EXAM 01/01/1980 DIABETES ANNUAL RETINAL EXAM 01/01/1980 DIABETES HBA1C Q 6 MONTHS 01/01/1980 DIABETES MICROALBUMIN ANNUAL SCREEN 01/01/1980 LDL CHOLESTEROL ANNUAL 01/01/1980 HPV/Cotest (21-29) 1982 CERVICAL CANCER SCREENING 01/01/1992 HPV/Cotest (30-65) 01/01/1992 PAP SMEAR 01/01/1992 BREAST CANCER SCREENING 2001 COLORECTAL SCREENING 2006 Colorectal Cancer Screening 2006 FIT-DNA Q 3 years 2006 FIT/FOBT Q 1 year 2006 Flex Sig/CT Colonography Q 5 years 2006 ZOSTER VACCINE (1 of 2) 01/01/2012 DTAP/TDAP/TD VACCINES (2 - T d or Tdap) 09/20/2023 09/20/2013 INFLUENZA VACCINE (#1) 2025 4, 09/20/2013, 08/08/2011, Additional history exists RSV VACCINE (60+ or ) (1 - 1-dose 75+ series) 2036 Medical Devices Implanted Type Area Production Corrugator Device Identifier Shelf Expiration Date Model / Serial / Lot Co Lag Screw 2.5 .03.0x14.0mm Implanted:Qty: 1 on 04/23/2020 by Shay Villagomez DPM at [facility] Left: Foot [id number] [place] [address] [id number] / / [id number] Description:ITEM ADD-RDJ Co Lag Srew 2.5 .03.0x14.0mm Implanted:Qty: 1 on 04/23/2020 by Shay Villagomez DPM at [facility] Left: Foot [id number] [place] [address] [id number] / / [id number] Description:ITEM ADD-RDJ ZA REQ [id number] Insurance [employer] HMO Member Subscriber Plan / Payer (Ef fective 2021-Present) Name:MendozaPrimoa Relation to Subscriber:Self Name:Amber Donaldson Payer ID:Not on file Group ID:[id number] Type:HMO Address: [address] [address] [employer] Member Subscriber Plan / Payer (Ef fective for All Dates) Name:Primo Donaldsona Relation to Subscriber:Self Name:Amber Donaldson Payer ID:Not on file Group ID:[id number] Type:RX Commercial Care Teams Creative Assistant Relationship Specialty Start Date End Date Mariusz Tolbert MD [address] [place] [address] PCP - General Family Practice 04/20/20
--- OUTSIDE RECORDS SUMMARY | 2025-09-16 12:11 | XMS_ITS | Continuity of Care Document ---
Author Organization [facility] [place] Address [address] [place] [address] Care Team Providers Care Mothers Helper Name Role Phone BA HARRISON Primary Care Provider Assessment No assessment recorded. Plan of Treatment Reminders Order Date Submit Date Provider Last Modified By Organization Details Last Modified Time Details Appointments VULVAR LESION REMOVAL 2024 09:30A Chad LEI MD Not available Not available Not available Lab None recorded. Referral None recorded. Procedures None recorded. Surgeries None recorded. Imaging MAMMO, screening , digital, bilateral 2024 025 [facility], [address], [place] [address], [place], [address], 09/10/2025 04:11:23 Medication Orders estradiol 0.01% (0.1 mg/gram) vaginal cream [address] [facility] [address], [address] [facility], [place], [address], 09/03/2025 15:15:47 Patient TargetsNo targets recorded. Patient InstructionsNo instructions recorded. Reason for Referral None Reported. Procedures Surgical History Date Name Laterality Status Provider Name and Address Organization Details Recorded Time 02/20/20 24 Vulvar Biopsy completed DAVID Pena [address], [place], [address], [facility] 02/20/2024 15:17:24 11/22/19 Date of Last Pap Smear completed Herlinda Hernández [facility] 02/18/2024 12:23:27 08/12/20 23 Date of Last Mammogram completed [facility] 11/22/2023 15:11:18 04/07/20 23 completed [facility] 11/22/2023 15:11:18 04/07/20 23 Date of Last Colonoscopy completed [facility] 11/22/2023 15:11:18 10/29/19 11 Carpal tunnel surgery completed [facility] 11/22/2023 15:25:45 Endometrial Ablation completed [facility] 11/22/2023 15:11:35 Colonoscopy completed [facility] 11/22/2023 15:11:35 Imaging Results None recorded. Procedure Notes None recorded. Medical Equipment None Reported. Allergies Allergen ID Allergen Name Allergen Category Reaction Reaction Severity Criticality Documentation Date Start Date Code Code System Note Provider Name and Address Organization Details Recorded Time 63319 indometha maribell medicatio n vomiting moderate Not available 11/22/2023 5781 RxNorm Jessica Swayne [facility] 4 15:11:00 56137 azelastin e medicatio n other severe Not available 11/22/2023 13549 RxNorm Jessica Swayne [facility], [facility] 4 15:11:00 02038 Bactrim medicatio n swelling moderate Not available 11/22/2023 35060 9 RxNorm Jessica Swayne [facility] 4 15:11:00 98337 Claritin medicatio n dry mouth severe Not available 11/22/2023 79789 6 RxNorm Jesscia Swayne [facility] 4 15:11:00 58009 nitrofura ntoin medicatio n Not available Not available Not available 11/22/2023 7454 RxNorm Reena Maryam, [facility] [address], [place], [address] , [facility] 4 15:13:26 54285 olive oil food,medi cation Not available Not available Not available 09/03/2025 13627 50 RxNorm Velia Chavis null, [facility] 5 10:00:40 Medications Name Sig Start [...] Not Available No t Available amoxicillin 875 mg-mio mayer clavulanate 125 mg tablet TAKE 1 TABLET [...] Updated DateTime 09/03/2025 149.86 cm 37.2 kg/m2 67639 g 124/76 mm[Hg] Velia Chavis [facility] 09/03/2025 10:00:03 Social History Question Answer Notes LastModified by Organizat ion Details LastModified Time Tobacco Smoking Status Never Smoker Herlinda Hernández greg, [facility] 02/18/2024 12:23:41 Do You Have An Advance Directive? No [email or web address] Information n ot available 09/03/2025 How Many Years Have You Consumed Alcohol? 40 Information not available 11/22/2023 Are You Blind Or Do You Have Difficulty Seeing? No Information n ot available 11/22/2023 What Is Your Level Of Caffeine Consumption? Moderate Information not available 11/22/2023 How Much Tobacco Do You Chew? None [email or web address] Information not available 09/08/2025 In The 14 [...] Or The Highest Degree You Have Received? [id number] Information not available 11/22/2023 Are There Any [...] anxious, or unable to sleep at night)? [id number] Information not available 11/22/2023 Family History Relationship [...] ICD10 Code Diagnosis IMO Codes Diagnosis Note [id number] DAVID Pena [place] [address] [address] 09/03/2025 09:44:45 09/03/2025 15:58:27 Screening mammography 46892059 Z12.31 [id number] order for screening mammogram given Vulval irritation 238229 003 N90.89 [id number] continue applying vaginal estrogen cream to the [...] review of plan of care. Atrophic vulva [id number] N90.5 4675161 Pain in fe male genitalia on intercourse 31701555 N94.10 [id number] Health Concerns Section Related Observation LastModified by Organization Detai ls LastModified Time None Recorded Concern Status LastModified by Organization Details LastModified Time None Recorded Payers Encounter Date Sequence Insurance Name Policy Number Policy Matos Covered Member ID Matos Member ID Guarantor Name 09/03/2025 1 [employer] - [employer] - [employer]S LOCAL [id number] (PPO) Cristhian Donaldson [id number] Cristhian Donaldson Notes Date Note Type Note Provider Name and Address Organization Details Recorded Time 09/03/2025 text/html 64yoHere today for vulvar lesion and irritation/dryness she had a vulvar biopsy in 2023 for [...] and DHEA cream from another providerstill experiencing dryness/itching/ir ritationdecreased libidored bump on vulva that itches, noticed a week ago DAVID Pena [address], [place], [address], [place] [facility] 09/03/2025 15:18:24 OBGyn Episode No OBEpisode recorded.
== END 2025-09-16 09:19 | disposition home or self-care (01) ==
PROVIDERS: PCP Family Medicine; Visit Provider Podiatrist Foot & Ankle Surgery
DX: Z01.818 Encounter for other preprocedural examination (principal); R94.31 Abnormal electrocardiogram [ECG] [EKG]
CPT/HCPCS: 93005